=== PATIENT | male | born 1960 | race Caucasian/White ===

== ENCOUNTER 2019-06-15 07:27 | Observation (INO) ==
--- NOTE | 2019-05-15 11:55 | PAT Medication Instructions ---
Medication Instructions Date of Service May 15, 2019 Home Medications cartilage 40 mg-collagen II 10 mg-boron 5 mg-hyaluronate 3.3 mg tablet 1 tab PO QAM cholecalciferol (vitamin D3) 25 mcg (1,000 unit) capsule 1,000 units PO QAM naproxen sodium 220 mg capsule 220 mg PO QAM PRN ASK your surgeon for instructions naproxen sodium 220 mg capsule 220 mg PO QAM PRN STOP taking 2 weeks before surgery (or as soon as possible if surgery is within 2 weeks) cartilage 40 mg-collagen II 10 mg-boron 5 mg-hyaluronate 3.3 mg tablet 1 tab PO QAM DO NOT take the morning of surgery cholecalciferol (vitamin D3) 25 mcg (1,000 unit) capsule 1,000 units PO QAM Other Notes If you have any questions please call us at [phone] or [phone] or [phone] or [phone]
--- NOTE | 2019-05-16 10:46 | Anesthesiology Consultation ---
Date of Service May 16, 2019 Assessment & Plan (1) Encounter for pre-operative examination: Chart Review Chart Review: Acceptable Risk for Surgery and Patient seen in Pre Admission Testing Teaching & Discussion Pre-Anesthesia Teaching/Discussion Notes: Instructed NPO after midnight before surgery,except medications with 15 cc of water. Medication instructions provided according to the PAT guidelines. History Surgery Operation Date: 06/15/19 12:10 Proposed Procedures p Left Unicompartment Knee Arthroplasty - Marcos Encarnacion, Height/Weight Height: 5 ft 10 in Weight: 94.6 kg Allergies Allergy/AdvReac Type Severity Reaction Status Date / Time No Known Allergies Allergy Verified 05/16/19 09:16 Medications Home Medications Medication Instructions Recorded Confirmed Last Taken cartilage 40 mg-collagen II 10 1 tab PO QAM 02/19/19 05/16/19 Unknown mg-boron 5 mg-hyaluronate 3.3 mg tablet cholecalciferol (vitamin D3) 25 1,000 units PO QAM 02/19/19 05/16/19 Unknown mcg (1,000 unit) capsule naproxen sodium 220 mg capsule 220 mg PO QAM PRN 02/19/19 05/16/19 Unknown Past Medical History Medical History Arthritis Exercise / Class Metabolic Activity II 4-5 Yardwork/Stairs/Walk up hill Past Surgical History Surgical History History of mandibular surgery under-bite repair Hx of colonoscopy Past Anesthesia History No Hx of Anesthesia Complications and No Family Hx of Anesthesia Complications History of PONV No Hx of PONV and No Hx of Motion Sickness Social History Smoking Status: Never smoker Do You Dip or Chew Tobacco: No Hx Alcohol Use: Yes alcohol intake frequency: a few times a week Hx Substance Use: No Review of Systems Patient denies chest pain, shortness of breath, dyspnea on exertion, cough, wheezing, palpitations. Physical Exam Vital Signs VITALS BP 162/94 (per patient, BP typically well controlled- will continue to personally/have PCP monitor) P 55 TEMP 98.0 SP02 95%RA RESP 18 PHYSICAL Full neck and c-spine range of motion. Full TMJ range of motion. TMD 3.5 finger breaths Mallampati Score 2 Dentition: several missing molars Lungs: clear throughout to auscultation Cardiac: regular rate and rhythm, no murmurs noted Spine: normal Carotid arteries: negative bruit Extremities: no edema Testing Laboratory Results 05/16/19 11:00 05/16/19 11:00 PT 9.8 Seconds (9.0-12.0) 05/16/19 11:00 INR 1.0 (0.9-1.1) 05/16/19 11:00 APTT 25.1 Seconds (21.0-31.0) 05/16/19 11:00 Blood Type O Positive 05/16/19 11:00 Antibody Screen NEGATIVE 05/16/19 11:00 Electrocardiogram Date: 05/16/19 Findings: + SB @ (49) Chest X-Ray Date: 05/16/19 The heart is the upper limits of normal in size. There is mild aortic tortuosity. There is no failure. There is no focal pulmonary consolidation. There are no pleural effusions. IMPRESSION: No active disease in the chest.
--- NOTE | 2019-05-16 11:20 | XRay Report ---
XR chest Pre-admission PA/Lat CLINICAL HISTORY: Preoperative chest COMPARISON STUDY: No previous studies for comparison. FINDINGS: The heart is the upper limits of normal in size. There is mild aortic tortuosity. There is no failure. There is no focal pulmonary consolidation. There are no pleural effusions.[ IMPRESSION: No active disease in the chest. ACT 112: Negative or not required by law. Electronically signed by: Mesfin Ruiz M.D. 05/16/2019 11:19 AM
[2019-05-16 12:00] LABS: Basophils # (auto) 0.01 K/uL (0-0.2); Basophils % (auto) 0.2 %; Eosinophils # (auto) 0.08 K/uL (0-0.5); Eosinophils % (auto) 1.6 %; Hematocrit (blood only) 44.3 % (42-52); Immature Granulocytes # (auto) 0.06 K/uL (0.00-0.02); Immature Granulocytes % (auto) 1.2 %; Lymphocytes # (auto) 1.17 K/uL (1.2-3.4); Lymphocytes % (auto) 23.7 %; Mean Corpuscular Hemoglobin 32.6 pg (25-34); Mean Corpuscular Hgb Conc 33.9 g/dL (32-36); Mean Corpuscular Volume 96.3 fL (80-100); Mean Platelet Volume 9.4 fL (7.4-10.4); Monocytes # (auto) 0.47 K/uL (0.11-0.59); Monocytes % (auto) 9.5 %; Neutrophils # (auto) 3.14 K/uL (1.4-6.5); Neutrophils % (auto) 63.8 %; Platelet Count 213 K/uL (130-400); RDW Coefficient of Variation 13.3 % (11.5-14.5); RDW Standard Deviation 46.6 fL (36.4-46.3); White Blood Count 4.93 K/uL (4.8-10.8)
[2019-05-16 12:07] LABS: BUN Creatinine Ratio 17.7 (10-20); Calcium 8.8 mg/dl (8.5-10.1); Creatinine Clr Calc Pharmacy 87.1 ml/min; Est GFR (African American) 87.8; Est GFR (Non-African American) 75.8; Potassium 4.3 mmol/L (3.5-5.1)
[2019-05-16 12:23] LABS: Partial Thromboplastin Ratio 0.9; Partial Thromboplastin Time 25.1 Seconds (21.0-31.0); Prothrombin Time 9.8 Seconds (9.0-12.0)
--- NOTE | 2019-05-16 12:49 | Electrocardiogram Report ---
Test Reason : Blood Pressure : / mmHG Vent. Rate : 049 BPM Atrial Rate : 049 BPM P-R Int : 162 ms QRS Dur : 082 ms QT Int : 430 ms P-R-T Axes : 072 058 057 degrees QTc Int : 388 ms Sinus bradycardia Otherwise normal ECG No previous ECGs available Confirmed by Kaiden Ortega ([id number]) on 05/16/2019 12:48:58 PM Referred By: Marcos Encarnacion Confirmed By:Kaiden Ortega
--- NOTE | 2019-06-15 06:46 | History & Physical Report ---
Date of Service June 15, 2019 Assessment & Plan (1) Osteoarthritis of right knee: We will proceed with a left unicompartmental knee arthroplasty. Postoperatively he will be placed on aspirin for DVT prophylaxis and kept overnight in the hospital for postoperative medical management. He plans [facility] upon discharge. Cam is a low risk for knee replacement surgery. Present on Admission?: Yes History of Present Illness Chief Complaint: Primary osteoarthritis of the left knee Primary Care Provider: Tobin Sawyer MD Cam is a pleasant 58-year-old male who is been dealing with chronic increasing left knee pain. X-rays and clinical examination have been diagnostic mostly for medial compartmental arthritis of the right knee. He is very active. He wants a more natural feeling knee. After discussions in the office, he has elected proceed with a left unicompartmental knee arthroplasty. Allergies Allergy/AdvReac Type Severity Reaction Status Date / Time No Known Allergies Allergy Verified 05/16/19 09:16 Home Medications Home Medications Medication Instructions Recorded Confirmed Type cartilage 40 mg-collagen II 10 1 tab PO QAM 02/19/19 05/16/19 History mg-boron 5 mg-hyaluronate 3.3 mg tablet cholecalciferol (vitamin D3) 25 1,000 units PO QAM 02/19/19 05/16/19 History mcg (1,000 unit) capsule naproxen sodium 220 mg capsule 220 mg PO QAM PRN 02/19/19 05/16/19 History Past Med/Surg History Medical History Arthritis Surgical History History of mandibular surgery under-bite repair Hx of colonoscopy Social History Preferred Language: Malian Communication Ability: Effective Beliefs That Will Affect Care: None Current Living Situation: Significant Other Feels Safe at Home: Yes Safety Concerns: Feels Safe At This Time Smoking Status: Never smoker Do You Dip or Chew Tobacco: No ; Second Hand Exposure: No ; Hx Alcohol Use: Yes Hx Substance Use: No Review of Systems Review of Systems: All systems reviewed & are unremarkable except as noted in HPI & below Physical Exam Constitutional: WD/WN, vitals as above Eyes: PERRL, conjunctivae normal, anicteric sclerae ENMT: external ear and nose normal, oropharynx normal Neck: trachea midline, no thyromegaly Respiratory: normal respiratory effort Cardiovascular: RRR, no murmur, no edema Gastrointestinal (Abdomen): normal bowel sounds, soft, nontender, no hepatosplenomegaly Musculoskeletal: On physical examination of the left knee there is a trace effusion. There is near full range of motion and no evidence of instability. There is significant tenderness palpation along the medial and lateral joint lines and over the distal femoral condyles. Psychiatric: A+Ox3, euthymic affect Results & Data Diagnostic Findings Radiographs of the left knee demonstrate advanced osteoarthritis with joint space narrowing osteophyte formation and [id number] articulation. PG Care Time/CCT Total # of Minutes Spent Total Time Spent with Patient: Total time spent is greater than 50% in coordination of care (as documented) at patient's floor/unit and/or counseling patient: Coding Level of Care Code 29501 Initial Inpt Care Lvl 3 Diagnoses Osteoarthritis of right knee M17.11
[~2019-06-15 07:27] MED LIST: ACETAMINOPHEN 500 MG TAB PO SCH; BUPIVACAINE 0.5 % 5 MG/1 ML PF 10ML VIAL ONE; CEFAZOLIN 2000MG 2,000 MG/15 ML SYR IV SCH; FAMOTIDINE 20 MG TAB PO SCH; GABAPENTIN 600 MG DOSE PO SCH; LR 500ML BOLUS, THEN 15ML/HR IV SCH; LR 60ML/HR IV SCH; ROPIVACAINE 0.5% 5 MG/ML 30 ML VIAL ONE; ROPIVACAINE 0.5% HCL/PF 150 MG, BUPIVACAINE 0.5% MPF 30 ML, EPINEPHrine 30MG/30ML (OR U... INSTIL SCH; TRANEXAMIC ACID 1,000 MG **IV Intra-op IV SCH; TRANEXAMIC ACID 1,000 MG **IV Pre-op IV SCH; dexAMETHasone 4 MG TAB PO SCH
[2019-06-15] MEDS ORDERED: PROPOFOL IV EMULSION 10 MG/ML 20 ML VIAL IV ONE ×3 (07:44→10:49)
[2019-06-15] MEDS ORDERED: MIDAZOLAM HCL 1 MG/ML 2ML VIAL ONE (07:44)
[2019-06-15] MEDS ORDERED: fentaNYL citrate 100 MCG/2 ML VIAL ONE ×2 (07:44→10:00)
[2019-06-15] MEDS ORDERED: ORTHO JOINT ANESTHETIC ONE (08:46)
[2019-06-15] MEDS ORDERED: KETOROLAC 30 MG/ML VIAL IV PRN (09:49)
[2019-06-15] MEDS ORDERED: ONDANSETRON INJ 2 MG/ML 2 ML VIAL IV PRN ×2 (09:49→13:30)
[2019-06-15] MEDS ORDERED: ATROPINE SULFATE 0.1 MG/ML 10ML SYR IV PRN (09:49)
[2019-06-15] MEDS ORDERED: ePHEDrine sulfate 50 MG/ML AMP IV PRN (09:49)
[2019-06-15] MEDS ORDERED: HYDROmorphone INJ 1 MG/ML SYRINGE IV PRN (09:49)
[2019-06-15] MEDS ORDERED: DEXAMETHASONE SOD INJ 4 MG/ML VIAL ONE (09:56)
[2019-06-15] MEDS ORDERED: ONDANSETRON INJ 2 MG/ML 2 ML VIAL ONE (09:56)
--- NOTE | 2019-06-15 11:19 | Operative Report ---
PG Post Operative Report Pre & Post Diagnosis Operation Date: 06/15/19 10:00 Pre-Op Diagnosis: Left Knee Degenerative Joint Disease Post-Op Diagnosis: Left Knee Degenerative Joint Disease I identified the patient and participated in the time-out.: Yes Procedure Operation Date: 06/15/19 10:00 Actual Procedures p Left Unicompartment Knee Arthroplasty(Left) - Marcos Encarnacion DO Surgeon Marcos Encarnacion DO Rn Clinical Appeals Marcos Canales PAC Estimated Blood Loss 10 Findings Consistent with Post-Op Diagnosis Specimens Left femoral and tibial bone Complications none Disposition Disposition: Recovery Room Indications Cam is a very pleasant 58-year-old male who is been dealing with chronic increasing left knee pain. X-rays and clinical examination have been diagnostic for primary osteoarthritis of the left knee. Most of the arthritis in his symptoms were located in the medial compartment. After extensive discussions, he elected to proceed with a left unicompartmental knee arthroplasty. Description of Procedure Implants used: I used a [employer] [place] unicompartmental knee arthroplasty system with a size medium femur, C tibia, and a size 4 mobile polyethylene bearing. All components were cemented in place with Palacos G cement. Cam arrived [facility] for the above procedure. He was seen in the preoperative holding area and the operative extremity was identified and signed. He was given a preoperative antibiotic, TXA, a spinal anesthetic and an adductor nerve block. He was taken back to the operating room and laid on the table in the supine position. He was given basic sedation. The operative knee was then prepped and draped in sterile fashion. A timeout was done, and the patient and the operative extremity was properly identified. A midline incision was made from the superior pole of the patella down to the tibial tubercle. Dissection was taken down to the extensor mechanism and a subvastus arthrotomy was used. The medial retinaculum was released and a small portion of the fat pad was excised. The knee was then placed in a leg singh and the intra-articular portion of the knee was exposed. The medial meniscus was removed. The ACL was intact and the lateral compartment was inspected and there were no signs of any chondral damage. Several sizing spoons were used to measure the distal femur and it measured to be a size medium.The tibial saw guide was then placed externally over the shaft of the tibia. A 4 mm G clamp was used to clamp the spoon with the external tibial saw guide. 2 pins were placed. A reciprocating saw was then used to resect the tibia just medial to the apex of the medial tibial spine. An oscillating saw was then used to resect the tibial plateau. The tibial bone was then removed. The tibia measured to be a size C. The trochlea was then exposed. A 4 mm drill was sent down the center of the femoral canal followed by a long intramedullary roc. A line was then marked in the center of the distal medial femoral condyle. A femoral drill guide was then placed and the IM link was used to connect the intramedullary roc to the femoral drill guide. A 4 mm drill was used in the upper pole of the drill guide and a 6 mm drill was used in the lower pole of the drill guide. The drill guide was then removed. A posterior resection guide was then placed in the posterior femur was resected. A 0 spigot was then impacted in the 6 mm drill hole. The distal femur was then milled and osteophytes were removed. Femoral and tibial trials were then placed. A size 4 feeler gauge was used to measure the flexion gap in 100 of flexion. A size 1 feeler gauge was used to measure the extension gap in full extension. Trials were then removed and a size 3 spigot was then impacted in the 6 mm hole. The distal femur was once again milled. The anti- impingement guide was then impacted into place and an anterior mill was used to remove anterior bone and create clearance for the front of the bearing. The tibial template was then placed and the keel cut saw was used to resect for the keeled component. Trial components were then placed along with a size 4 mobile- bearing. The knee was brought through a full range of motion and felt to be stable. All trial components were then removed. Surrounding soft tissues were then injected with 50 cc of a pain control cocktail. Drill holes were placed in the distal femur to help with cement integration. The femoral and tibial components were then cemented in place with Palacos G cement. The size 4 mobile-bearing was then snapped into place. The knee was brought through a full range of motion and felt to be stable. The joint was then irrigated with normal saline solution. The tourniquet was deflated and hemostasis was obtained. The extensor mechanism was then closed with #1 Vicryl suture. Skin was closed with 2-0 Vicryl, 3-0V lock suture, and amanda. A compressive dressing was then placed. He was then transferred to a hospital bed and taken to the postanesthesia care unit in stable condition. He tolerated the procedure well. Marcos Canales PA-C, was present for the entire procedure. He was critical for patient positioning, prepping, draping, retraction exposure, wound closure and application of sterile dressing. I attest to the content of the Intraoperative Record and any orders documented therein. Any exceptions are noted below.
--- NOTE | 2019-06-15 11:51 | XRay Report ---
XR knee LT 1 or 2V routine HISTORY: 58 years-old Male Surgical Post Op chronic degenerative change of the left knee COMPARISON: Knee radiographs 11/08/2018 TECHNIQUE: 2 views of the left knee FINDINGS: Medial compartment hemiarthroplasty changes. Satisfactory alignment without acute fracture or retaine d foreign body. Moderate patellofemoral and lateral compartment osteoarthritis. Anterior midline skin amanda are noted along with expected postoperative swelling and deep tissue air with surgical drain age catheter. IMPRESSION: Medial compartment hemiarthroplasty with expected postoperative findings. ACT 112: Negative or not required by law. The above report was generated using voice recognition software. It may contain grammatical, syntax o r spelling errors. Electronically signed by: Luciano Bazan M.D. 06/15/2019 11:50 AM
--- NOTE | 2019-06-15 12:17 | Anesthesiology Progress Note ---
Date of Service June 15, 2019 Anesthesia Post Procedure Vital Signs Vital Signs: Temp Pulse Pulse Resp BP Pulse Ox 06/15/19 11:55 36.9 C 60 16 143/85 H 94 06/15/19 11:45 61 16 138/81 98 06/15/19 11:39 36.9 C 66 15 126/81 97 06/15/19 07:47 36.7 C 58 L 20 150/88 H 97 Transfer of Care Handoff Completed per policy Notes Mental Status: alert / awake / arousable Patient Amnestic to Procedure: Yes Nausea / Vomiting: adequately controlled Pain: adequately controlled Airway Patency, RR, SpO2: stable & adequate BP & HR: stable & adequate Hydration State: stable & adequate Anesthetic Complications: no major complications apparent
[2019-06-15] MEDS ORDERED: HYDROmorphone INJ 0.5 MG/0.5 ML SYR IV PRN (13:30)
[2019-06-15] MEDS ORDERED: bisacodyL 10 MG SUPP PR PRN (13:30)
[2019-06-15] MEDS ORDERED: SODIUM CHLORIDE 0.9% 1000ML 1,000 ML IV SCH (13:30)
[2019-06-15] MEDS ORDERED: METOCLOPRAMIDE HCL INJ 5 MG/ML 2 ML VIAL IV PRN (13:30)
[2019-06-15] MEDS ORDERED: MAGNESIUM HYDROXIDE SUSP 30 ML UDC PO PRN (13:30)
[2019-06-15] MEDS ORDERED: NALOXONE HCL 0.4 MG/1 ML VIAL/CARP IV PRN (13:30)
[2019-06-15] MEDS ORDERED: OXYCODONE HCL IR 5 MG TAB (IMMEDIATE RELEASE) PO PRN (13:30)
[2019-06-15] MEDS: ACETAMINOPHEN 500 MG TAB PO SCH ×2 (13:51→22:25)
[2019-06-15] MEDS: KETOROLAC 30 MG/ML VIAL IV SCH ×2 (13:51→20:07)
[2019-06-15] MEDS: CEFAZOLIN 2000MG 2,000 MG/15 ML SYR IV SCH (17:30)
[2019-06-15] MEDS: ASPIRIN 81 MG ECTAB PO SCH (20:02)
[2019-06-15] MEDS: DOCUSATE SODIUM 100 MG CAP PO SCH (20:02)
[2019-06-15] MEDS ORDERED: SENNA 8.6 MG TAB PO SCH (21:00)
[2019-06-16] MEDS: CEFAZOLIN 2000MG 2,000 MG/15 ML SYR IV SCH (02:09)
[2019-06-16] MEDS: KETOROLAC 30 MG/ML VIAL IV SCH ×2 (02:09→08:49)
[2019-06-16 06:01] LABS: Hematocrit (blood only) 40.1 % (42-52); Hemoglobin 13.8 g/dL (14.0-18.0); Mean Corpuscular Hemoglobin 32.4 pg (25-34); Mean Corpuscular Hgb Conc 34.4 g/dL (32-36); Mean Corpuscular Volume 94.1 fL (80-100); Mean Platelet Volume 9.8 fL (7.4-10.4); Platelet Count 234 K/uL (130-400); RDW Coefficient of Variation 12.8 % (11.5-14.5); RDW Standard Deviation 43.6 fL (36.4-46.3); Red Blood Count 4.26 M/uL (4.7-6.1)
[2019-06-16 06:29] LABS: BUN Creatinine Ratio 13.6 (10-20); Calcium 8.4 mg/dl (8.5-10.1); Est GFR (African American) 79.7; Est GFR (Non-African American) 68.8; Potassium 4.1 mmol/L (3.5-5.1)
[2019-06-16] MEDS: ACETAMINOPHEN 500 MG TAB PO SCH (06:41)
--- NOTE | 2019-06-16 07:41 | Orthopedic Progress Note ---
Date of Service June 16, 2019 Assessment & Plan (1) History of prosthetic unicompartmental arthroplasty of left knee: Overall he is doing very well. Is not having much pain in the left knee. He will be seen by physical therapy this morning for ambulation and range of motion exercises. He is on aspirin for DVT prophylaxis. He can be discharged home later today. He will follow-up with orthopedics in 2 weeks. Present on Admission?: Yes Bhavana Levy was seen and examined at bedside this morning. Overall he is doing very well. Is not having much pain in the left knee. He was up and ambulating aroun d the [employer] station yesterday. He has no complaints. Physical Exam Musculoskeletal: On physical examination of the left knee, the dressing is clean and dry. His leg is out to full extension. He has active dorsiflexion and plantarflexion of his left ankle. Results & Data ([facility]) Vital Signs (Past 12 Hours) Vital Signs Temp Pulse Resp BP Pulse Ox 06/16/19 03:00 36.7 C 55 L 16 146/85 H 97 06/15/19 23:59 37.0 C 70 18 148/78 H 96 06/15/19 19:48 36.8 C 56 L 18 135/80 95 Laboratory Results H & H 05/16/19 06/16/19 Range/Units 11:00 05:04 Hgb 15.0 13.8 L (14.0-18.0) g/dL Hct 44.3 40.1 L (42-52) % Coagulation 05/16/19 Range/Units 11:00 INR 1.0 (0.9-1.1) Diagnostic Findings Postoperative x-rays of the left knee show the prosthesis to be in anatomic alignment without any evidence of fracture, dislocation, or loosening. PG Care Time/CCT Total # of Minutes Spent Total Time Spent with Patient: Total time spent is greater than 50% in coordination of care (as documented) at patient's floor/unit and/or counseling patient: Coding Level of Care Code None Diagnoses History of prosthetic unicompartmental arthroplasty of left knee Z96.652
--- NOTE | 2019-06-16 07:42 | Discharge Summary ---
Date of Service June 16, 2019 Admission HPI Per Admitting Provider Cam is a pleasant 58-year-old male who is been dealing with chronic increasing left knee pain. X-rays and clinical examination have been diagnostic mostly for medial compartmental arthritis of the right knee. He is very active. He wants a more natural feeling knee. After discussions in the office, he has elected proceed with a left unicompartmental knee arthroplasty. Principal Diagnosis Left unicompartmental knee arthroplasty Discharge Data Allergies Allergy/AdvReac Type Severity Reaction Status Date / Time No Known Allergies Allergy Verified 06/15/19 07:46 Consultations 06/15/19 12:33 Consult Case Management - Discharge Planning Routine Procedures Performed Operation Date: 06/15/19 10:00 Actual Procedures p Left Unicompartment Knee Arthroplasty(Left) - Marcos Encarnacion DO Ordered Studies 06/15/19 05:00 US - OR guided needle placemen Routine Hospital Course (1) History of prosthetic unicompartmental arthroplasty of left knee: On June 15, 2019 Cam arrived at [facility] and underwent a left partial knee replacement without complication. He had a spinal anesthetic. Postoperatively he was started on aspirin for DVT prophylaxis and transferred to general orthopedic floors. His hospital course was uneventful. On postop day #1 his H&H was stable and his pain was well controlled. He was able to participate well with physical therapy doing ambulation and range of motion exercises. He was then discharged home. He will follow-up with orthopedics in 2 weeks. Total Time Total Time Spent Total Time Spent (In Minutes): 20 Discharge Plan Discharge Items Patient Disposition: Home - Home Health Services Reason For Visit: Left Knee Degenerative Joint Disease Discharge Diagnosis: Left partial knee replacement Activity: As commented below Non-emergency contact: Surgeon Call non-emergency contact if: your wound has increased redness and your wound has increased drainage Follow-up/Referrals: Tobin Sawyer MD [Primary Care Provider] - Diet: Regular Addtl Attending Provider Instructions: Activity and Therapy Recommendations: * If you are using [facility] then therapy will be provided at your home until they feel you have accomplished all of your goals. * If you are using [facility] then Physical Therapy will be provided until they feel you are ready to start Outpatient Physical Therapy. * If you are not using home therapy then Outpatient Physical Therapy should start about 3-5 days from your day of surgery. Therapy will last about 6-10 weeks * It is important not to put a pillow under your knee when you are relaxing or sleeping. It is just as important to make sure you are getting your knee perfectly straight as it is to regain your knee bend. * You were shown a series of exercises in the hospital. Do these exercises three times each day including the exercises you were shown in physical therapy. * Get up and walk several times each day. For the first four weeks, try not to stand or walk for more than one hour at a time. If you do stand or walk for more than one hour, you will not hurt anything, but your leg will likely swell. * As you feel comfortable, you may change from the walker or crutches to a cane and then to independent walking. Medications: * Narcotic You will likely be sent home from the hospital with a prescription for the narcotic pain medication that worked best throughout your stay. * Aspirin Most patients will be required to take Aspirin 81mg twice a day for 6 weeks after surgery. This is obtained [id number] and a prescription is not necessary. * Other medications may be prescribed for specific circumstances. If you have any questions, please call the office at . * Resume previous home medications unless otherwise instructed TEDs/Elastic Stockings: The white elastic stockings help limit swelling and prevent blood clots from forming in your legs.~ The more you wear them, the more they work. Wear them for six weeks. Dressing Care: If the incision is not draining then you may leave the amanda open to air. If there is a little bit of drainage or if the amanda are getting stuck on your clothing then cover the incision with a dry dressing. The amanda will be removed at your 2 week follow-up appointment. Showering: You may shower 5 days from the day of surgery. Let the soapy shower water run over the amanda and pat them dry. Do not scrub or soak the incision. Things To Watch For: * Drainage from the incision site that occurs more than one week after your surgery. * Increased redness at the incision site. * Fever above 102 degrees Fahrenheit. * Unusual chest pain or shortness of breath. * Call [facility] at with any of the above problems Follow-Up Visit: Follow-up with Dr. Encarnacion 2-3 weeks after your day of surgery. An appointment was probably scheduled when you signed-up for surgery in the office. If you have any questions call Office Instructions: More detailed instructions as well as Frequently Asked Questions were provided i n a folder by our office when you signed-up for surgery. Please review these instructions when you get home. If you have any further questions or concerns, please feel free to call the office at [phone] Pending Studies at Discharge: No Stand-Alone Forms: [facility] C[facility] Medications and DC Order Prescriptions: New oxycodone 5 mg Tablet 5 mg PO Q4H PRN (Reason: pain) Qty: 30 RF: 0 aspirin 81 mg Tablet,Delayed Release (Dr/Ec) 81 mg PO BID 42 Days Qty: 0 RF: 0 Continued naproxen sodium [Aleve] 220 mg capsule 220 mg PO QAM PRN (Reason: Pain) RF: 0 cholecalciferol (vitamin D3) 1,000 unit capsule 1,000 units PO QAM RF: 0 Joint Health 40-10-5-3.3 mg tablet 1 tab PO QAM RF: 0 Discharge Orders: Discharge Order (Routine); Ordered 06/16/19 Ordered By: Marcos Encarnacion Admission Data Admit Date/Time: 06/15/19 11:39 Attending Provider: Marcos Encarnacion Admit Provider: Marcos Encarnacion Primary Care Provider: Tobin Sawyer Coding Level of Care Code D/C Day Management <30 mins Diagnoses History of prosthetic unicompartmental arthroplasty of left knee Z96.652
[2019-06-16] MEDS ORDERED: dexAMETHasone 4 MG TAB PO SCH (08:00)
[2019-06-16] MEDS: ASPIRIN 81 MG ECTAB PO SCH (08:49)
[2019-06-16] MEDS: DOCUSATE SODIUM 100 MG CAP PO SCH (08:50)
[2019-06-16] MEDS ORDERED: MULTIVITAMIN TAB PO SCH (09:00)
== END 2019-06-16 10:58 | disposition home health service (06) ==
LOC: 3E 07:27 → ASU 07:27
DX: M17.11 Unilateral primary osteoarthritis, right knee

== ENCOUNTER 2020-01-25 06:31 | Observation (INO) ==
--- NOTE | 2019-12-26 15:51 | PAT Medication Instructions ---
Medication Instructions Date of Service December 26, 2019 Home Medications Medication Instructions Recorded amoxicillin 500 mg tablet 2,000 mg PO ONCE PRN #4 tab 10/11/19 cartilage 40 mg-collagen II 10 mg-boron 5 mg-hyaluronate 3.3 mg tablet 1 tab PO QAM cholecalciferol (vitamin D3) 25 mcg (1,000 unit) capsule 1,000 units PO QAM naproxen sodium 220 mg capsule 220 mg PO QAM PRN amoxicillin 500 mg tablet 2,000 mg PO ONCE PRN Continue as directed amoxicillin 500 mg tablet 2,000 mg PO ONCE PRN ASK your surgeon for instructions naproxen sodium 220 mg capsule 220 mg PO QAM PRN STOP taking 2 weeks before surgery If surgery is within 2 weeks, stop taking as soon as possible. cartilage 40 mg-collagen II 10 mg-boron 5 mg-hyaluronate 3.3 mg tablet 1 tab PO QAM DO NOT take the morning of surgery cholecalciferol (vitamin D3) 25 mcg (1,000 unit) capsule 1,000 units PO QAM Other Notes If you have any questions please call us at [phone] or [phone] or [phone] or [phone]
--- NOTE | 2019-12-27 10:02 | Anesthesiology Consultation ---
Date of Service December 27, 2019 Assessment & Plan (1) Encounter for pre-operative examination: COVID Status: As of 12/26 assessment, patient denies travel to endemic area, known exposure/sick contacts, or symptoms of COVID19. Patient instructed that they and their household members must follow strict social distancing guidelines, wear a mask in public and avoid travel for 14 days prior to surgery. Preoperative COVID19 testing to be completed prior to surgery per surgeon's a rrangements. Patient made aware to self-isolate as much as possible between COVID testing and surgery. S/P L TKA 06/15/[address] [facility] -- SAB + AC block, pt aaron well. Chart Review Chart Review: Acceptable Risk for Surgery and Patient seen in Pre Admission Testing Teaching & Discussion Instructed NPO after midnight before surgery, except medications with 15 cc of water. Medication instructions provided according to the PAT guidelines. History Surgery Operation Date: 01/25/20 07:00 Proposed Procedures p Right Uni Compartment Knee Arthroplasty Versus - Marcos Encarnacion DO s Total Knee Arthroplasty - Marcos Encarnacion DO Height/Weight Height: 5 ft 10 in Weight: 96 kg Allergies Allergy/AdvReac Type Severity Reaction Status Date / Time No Known Allergies Allergy Verified 12/24/19 12:26 Medications Home Medications Medication Instructions Recorded Confirmed Last Taken cartilage 40 mg-collagen II 10 1 tab PO QAM 02/19/19 12/24/19 05/31/19 07:00 mg-boron 5 mg-hyaluronate 3.3 mg tablet cholecalciferol (vitamin D3) 25 1,000 units PO QAM 02/19/19 12/24/19 06/08/19 07:00 mcg (1,000 unit) capsule naproxen sodium 220 mg capsule 220 mg PO QAM PRN 02/19/19 12/24/19 06/01/19 07:00 amoxicillin 500 mg tablet 2,000 mg PO ONCE PRN #4 tab 10/11/19 12/24/19 Unknown Past Medical History Medical History Arthritis Exercise / Class Metabolic Activity II 4-5 Yardwork/Stairs/Walk up hill Past Family History Family History Sister PONV (postoperative nausea and vomiting) Past Surgical History Surgical History History of mandibular surgery under-bite repair History of prosthetic unicompartmental arthroplasty of left knee (~06/2019) 06/15/2019 [facility] Hx of colonoscopy Past Anesthesia History No Hx of Anesthesia Complications and No Family Hx of Anesthesia Complications History of PONV No Hx of PONV and No Hx of Motion Sickness Social History Smoking Status: Never smoker Do You Dip or Chew Tobacco: No Hx Alcohol Use: Yes alcohol intake frequency: a few times a week Hx Substance Use: No substance use type: does not use Review of Systems Pt denies any recent chest pain, shortness of breath, cough, fever, URI, or uncontrolled acid reflux. +Occ palpitations Physical Exam Vital Signs BP: 148/93 (pt reports taking his BP at home regularly and usually 130s/80s) P: 52bpm SPO2: 96% RA T: 98.2 F R: 16 ENMT Mouth: no dental restorations, no chipped teeth and no loose teeth Thyromental Distance: > or= 3.5 Finger Breadths Mallampati Class: I Neck normal visual inspection; neck extension not limited Respiratory normal respiratory effort Auscultation: lungs clear to auscultation bilaterally Cardiovascular Rate/Rhythm: regular rate and regular rhythm Heart Sounds: no murmur Extremities: no edema Testing Laboratory Results 12/27/19 10:17 12/27/19 10:17 PT 10.4 Seconds (9.0-12.0) 12/27/19 10:17 INR 1.0 (0.9-1.1) 12/27/19 10:17 APTT 27.6 Seconds (21.0-31.0) 12/27/19 10:17 Blood Type O Positive 12/27/19 10:17 Antibody Screen NEGATIVE 12/27/19 10:17 Electrocardiogram Date: 05/16/19 Findings: + SB @ (49bpm) Chest X-Ray Date: 05/16/19 Findings: + NAD
[2019-12-27 11:46] LABS: Basophils # (auto) 0.01 K/uL (0-0.2); Basophils % (auto) 0.2 %; Eosinophils # (auto) 0.09 K/uL (0-0.5); Eosinophils % (auto) 1.9 %; Hematocrit (blood only) 43.9 % (42-52); Hemoglobin 15.2 g/dL (14.0-18.0); Immature Granulocytes # (auto) 0.04 K/uL (0.00-0.02); Immature Granulocytes % (auto) 0.9 %; Lymphocytes # (auto) 1.11 K/uL (1.2-3.4); Lymphocytes % (auto) 23.7 %; Mean Corpuscular Hemoglobin 32.9 pg (25-34); Mean Corpuscular Hgb Conc 34.6 g/dL (32-36); Mean Platelet Volume 9.7 fL (7.4-10.4); Monocytes # (auto) 0.41 K/uL (0.11-0.59); Monocytes % (auto) 8.7 %; Neutrophils # (auto) 3.03 K/uL (1.4-6.5); Neutrophils % (auto) 64.6 %; Platelet Count 216 K/uL (130-400); RDW Coefficient of Variation 13.7 % (11.5-14.5); RDW Standard Deviation 47.4 fL (36.4-46.3); Red Blood Count 4.62 M/uL (4.7-6.1); White Blood Count 4.69 K/uL (4.8-10.8)
[2019-12-27 11:58] LABS: Partial Thromboplastin Time 27.6 Seconds (21.0-31.0); Prothrombin Time 10.4 Seconds (9.0-12.0)
[2019-12-27 11:59] LABS: BUN Creatinine Ratio 14.7 (10-20); Calcium 8.8 mg/dl (8.5-10.1); Creatinine Clr Calc Pharmacy 81.4 ml/min; Est GFR (African American) 80.9; Est GFR (Non-African American) 69.8; Potassium 4.4 mmol/L (3.5-5.1)
--- NOTE | 2020-01-24 15:51 | History & Physical Report ---
Date of Service January 24, 2020 Assessment & Plan (1) Osteoarthritis of right knee: We will proceed with a right unicompartmental knee arthroplasty. Postoperatively he will be given some oral pain medications and likely discharged to home the same day. He will be on aspirin 81 mg twice a day for DVT prophylaxis. He plans to use [place] physical therapy upon discharge. Present on Admission?: Yes History of Present Illness Chief Complaint: Primary osteoarthritis of the right knee Primary Care Provider: Tobin Sawyer MD Cam is a pleasant 59-year-old male who I did a left partial knee replacement on in June 2019. He did very well with that. Unfortunately he has been dealing with right knee pain. X-rays clinical examination have been diagnostic for advanced medial compartment arthritis of the right knee. After failing conservative treatment, he has elected proceed with a right unicompartmental knee arthroplasty. Allergies Allergy/AdvReac Type Severity Reaction Status Date / Time No Known Allergies Allergy Verified 12/24/19 12:26 Home Medications Home Medications Medication Instructions Recorded Confirmed Type cartilage 40 mg-collagen II 10 1 tab PO QAM 02/19/19 12/24/19 History mg-boron 5 mg-hyaluronate 3.3 mg tablet cholecalciferol (vitamin D3) 25 1,000 units PO QAM 02/19/19 12/24/19 History mcg (1,000 unit) capsule naproxen sodium 220 mg capsule 220 mg PO QAM PRN 02/19/19 12/24/19 History amoxicillin 500 mg tablet 2,000 mg PO ONCE PRN #4 tab 10/11/19 12/24/19 Rx Past Med/Surg History Medical History Arthritis Surgical History History of mandibular surgery under-bite repair History of prosthetic unicompartmental arthroplasty of left knee (~06/2019) 06/15/2019 [facility] Hx of colonoscopy Family History Sister PONV (postoperative nausea and vomiting) Social History Smoking Status: Never smoker Second Hand Exposure: No; Do You Dip or Chew Tobacco: No; Hx Alcohol Use: Yes Hx Substance Use: No Preferred Language: Polish Communication Ability: Effective 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: No Beliefs That Will Affect Care: None marital status: Current Living Situation: Significant Other Feels Safe at Home: Yes Safety Concerns: Feels Safe At This Time Assistive Devices: Glasses Review of Systems Review of Systems: All systems reviewed & are unremarkable except as noted in HPI & below Physical Exam Constitutional: WD/WN, vitals as above Eyes: PERRL, conjunctivae normal, anicteric sclerae ENMT: external ear and nose normal, oropharynx normal Neck: trachea midline, no thyromegaly Respiratory: normal respiratory effort Cardiovascular: RRR, no murmur, no edema Gastrointestinal (Abdomen): normal bowel sounds, soft, nontender, no hepatosplenomegaly Musculoskeletal: On physical examination of the right knee there is a trace effusion. There is near full range of motion and no evidence of instability. There is significant tenderness palpation along the medial and lateral joint lines and over the distal femoral condyles. Psychiatric: A+Ox3, euthymic affect Results & Data Results & Data ([facility]) Diagnostic Findings Radiographs of the right knee demonstrate advanced osteoarthritis with joint space narrowing osteophyte formation and [id number] articulation. PG Care Time/CCT Total # of Minutes Spent Total Time Spent with Patient: Total time spent is greater than 50% in coordination of care (as documented) at patient's floor/unit and/or counseling patient: Coding Level of Care Code None Diagnoses Osteoarthritis of right knee M17.11
[~2020-01-25 06:31] MED LIST changes: -BUPIVACAINE 0.5 % 5 MG/1 ML PF 10ML VIAL ONE; -CEFAZOLIN 2000MG 2,000 MG/15 ML SYR IV SCH; -ROPIVACAINE 0.5% 5 MG/ML 30 ML VIAL ONE; +ceFAZolin 2000MG 2,000 MG/15 ML SYR IV SCH
[2020-01-25] MEDS ORDERED: BUPIVACAINE 0.5 % 5 MG/1 ML PF 10ML VIAL ONE (06:32)
[2020-01-25] MEDS ORDERED: BUPIVACAINE/EPINEPHRINE 0.25% 1:200,000 30 ML VIAL ONE (06:32)
[2020-01-25] MEDS ORDERED: fentaNYL citrate 100 MCG/2 ML VIAL ONE ×3 (06:42→09:37)
[2020-01-25] MEDS ORDERED: MIDAZOLAM HCL 1 MG/ML 2ML VIAL ONE (06:43)
[2020-01-25] MEDS ORDERED: ONDANSETRON INJ 2 MG/ML 2 ML VIAL ONE (06:47)
[2020-01-25] MEDS ORDERED: LIDOCAINE HCL 2% 2 ML VIAL/AMP(20MG/ML) INFIL ONE (06:47)
[2020-01-25] MEDS ORDERED: PROPOFOL IV EMULSION 10 MG/ML 20 ML VIAL IV ONE (06:47)
--- NOTE | 2020-01-25 06:58 | History & Physical Bridge Note ---
Date of Service January 25, 2020 History & Physical Bridge Note I have examined the patient, reviewed the History & Physical and in the interval since the performance of the History & Physical I have noted the following changes of clinical significance: no changes noted
[2020-01-25] MEDS ORDERED: KETAMINE HCL INJ 50 MG/ML 10 ML VIAL ONE (07:06)
[2020-01-25] MEDS ORDERED: ORTHO JOINT ANESTHETIC ONE (07:22)
[2020-01-25] MEDS ORDERED: fentaNYL citrate 100 MCG/2 ML VIAL IV PRN (07:59)
[2020-01-25] MEDS ORDERED: ePHEDrine sulfate 50 MG/ML AMP IV PRN (07:59)
[2020-01-25] MEDS ORDERED: ATROPINE SULFATE 0.1 MG/ML 10ML SYR IV PRN (07:59)
[2020-01-25] MEDS ORDERED: HYDROmorphone INJ 2 MG/ML SYR/VIAL IV PRN (07:59)
[2020-01-25] MEDS ORDERED: ONDANSETRON INJ 2 MG/ML 2 ML VIAL IV PRN ×2 (07:59→12:53)
[2020-01-25] MEDS ORDERED: PROMETHAZINE HCL 12.5 MG in SODIUM CHLORIDE 0.9% 50 ML IV PRN (07:59)
[2020-01-25] MEDS ORDERED: DEXAMETHASONE SOD INJ 4 MG/ML VIAL ONE (08:45)
[2020-01-25] MEDS ORDERED: HYDROmorphone INJ 2 MG/ML SYR/VIAL ONE (08:53)
[2020-01-25] MEDS ORDERED: GLYCOPYRROLATE 0.2 MG/ML VIAL ONE (09:20)
--- NOTE | 2020-01-25 09:52 | Operative Report ---
PG Post Operative Report Pre & Post Diagnosis Operation Date: 01/25/20 08:30 Pre-Op Diagnosis: Right Degenerative Joint Disease Post-Op Diagnosis: Right Degenerative Joint Disease I identified the patient and participated in the time-out.: Yes Procedure Operation Date: 01/25/20 08:30 Actual Procedures p Right Uni Compartment Knee Arthroplasty(Right) - Marcos Encarnacion DO Surgeon Marcos Encarnacion, Stop Attacher Marcos Canales PAC Estimated Blood Loss 50 Findings Consistent with Post-Op Diagnosis Specimens Right femoral and tibial bone Complications none Disposition Disposition: Recovery Room Indications Cam is a pleasant 59-year-old male who presented my office with complaints of bilateral knee pain. X-rays showed mostly medial compartmental arthritis of the knees. I did a left unicompartmental knee arthroplasty on him 6 months ago and he did very well with that. He is elected to proceed with a right unicompartmental knee arthroplasty. Description of Procedure Implants used: I used a [employer] [place] unicompartmental knee arthroplasty system with a size medium femur, C tibia, and a size 5 mobile polyethylene bearing. All components were cemented in place with Palacos G cement. Cam arrived [facility] for the above procedure. He was seen in the preoperative holding area and the operative extremity was identified and signed. He was given a preoperative antibiotic, TXA, a spinal anesthetic and an adductor nerve block. He was taken back to the operating room and laid on the table in the supine position. He was given basic sedation. The operative knee was then prepped and draped in sterile fashion. A timeout was done, and the patient and the operative extremity was properly identified. A midline incision was made from the superior pole of the patella down to the tibial tubercle. Dissection was taken down to the extensor mechanism and a subvastus arthrotomy was used. The medial retinaculum was released and a small portion of the fat pad was excised. The knee was then placed in a leg singh and the intra-articular portion of the knee was exposed. The medial meniscus was removed. The ACL was intact and the lateral compartment was inspected and there were no signs of any chondral damage. Several sizing spoons were used to measure the distal femur and it measured to be a size medium.The tibial saw guide was then placed externally over the shaft of the tibia. A 4 mm G clamp was used to clamp the spoon with the external tibial saw guide. 2 pins were placed. A reciprocating saw was then used to resect the tibia just medial to the apex of the medial tibial spine. An oscillating saw was then used to resect the tibial plateau. The tibial bone was then removed. The tibia measured to be a size C. The trochlea was then exposed. A 4 mm drill was sent down the center of the femoral canal followed by a long intramedullary roc. A line was then marked in the center of the distal medial femoral condyle. A femoral drill guide was then placed and the IM link was used to connect the intramedullary roc to the femoral drill guide. A 4 mm drill was used in the upper pole of the drill guide and a 6 mm drill was used in the lower pole of the drill guide. The drill guide was then removed. A posterior resection guide was then placed in the posterior femur was resected. A 0 spigot was then impacted in the 6 mm drill hole. The distal femur was then milled and osteophytes were removed. Femoral and tibial trials were then placed. A size 5 feeler gauge was used to measure the flexion gap in 100 of flexion. A size 3 feeler gauge was used to measure the extension gap in full extension. Trials were then removed and a size 2 spigot was then impacted in the 6 mm hole. The distal femur was once again milled. The anti-impingement guide was then impacted into place and an anterior mill was used to remove anterior bone and create clearance for the front of the bearing. The tibial template was then placed and the keel cut saw was used to resect for the keeled component. Trial components were then placed along with a size 5 mobile-bearing. The knee was brought through a full range of motion and felt to be stable. All trial components were then removed. Surrounding soft tissues were then injected with 50 cc of a pain control cocktail. Drill holes were placed in the distal femur to help with cement integration. The femoral and tibial components were then cemented in place with Palacos G cement. The size 5 mobile-bearing was then snapped into place. The knee was brought through a full range of motion and felt to be stable. The joint was then irrigated with normal saline solution. The tourniquet was deflated and hemostasis was obtained. The extensor mechanism was then closed with #1 Vicryl suture. Skin was closed with 2-0 Vicryl, 3-0V lock suture, and amanda. A Silverlon and a compressive dressing were placed. He was then transferred to a hospital bed and taken to the postanesthesia care unit in stable condition. He tolerated the procedure well. Marcos Canales PA-C, was present for the entire procedure. He was critical for patient positioning, prepping, draping, retraction exposure, wound closure and application of sterile dressing. I attest to the content of the Intraoperative Record and any orders documented therein. Any exceptions are noted below.
[2020-01-25] MEDS ORDERED: NALOXONE HCL 0.4 MG/1 ML VIAL/CARP ONE (11:11)
[2020-01-25] MEDS: NALOXONE HCL 0.4 MG/1 ML VIAL/CARP IV PRN ×2 (11:16→11:21)
--- NOTE | 2020-01-25 11:35 | XRay Report ---
TWO VIEWS RIGHT KNEE CLINICAL HISTORY: Postoperative examination. FINDINGS: AP and crosstable lateral portable views of the right knee are obtained. A right knee hemia rthroplasty of the medial compartment is in near anatomic alignment. Mild/moderate joint narrowing is seen at the patellofemoral articulation. There are lateral marginal osteophytes and patellar entheso phytes. No acute fracture is seen. There are expected postoperative changes around the knee including skin clips, soft tissue edema, and subcutaneous gas. IMPRESSION: Expected postoperative changes status post right knee hemiarthroplasty procedure. No acut e fracture is seen. ACT 112: Negative or not required by law. Electronically signed by: Keith Sands M.D. 01/25/2020 11:33 AM
--- NOTE | 2020-01-25 12:02 | Anesthesiology Progress Note ---
Date of Service January 25, 2020 Anesthesia Post Procedure Vital Signs Vital Signs: Temp Pulse Resp BP BP Pulse Ox 01/25/20 11:50 72 20 142/90 H 97 01/25/20 11:40 69 16 139/83 97 01/25/20 11:30 82 14 126/81 95 01/25/20 11:20 75 12 125/83 95 01/25/20 11:10 78 10 L 139/87 91 01/25/20 11:00 79 10 L 156/86 H 93 01/25/20 10:50 77 10 L 121/87 95 01/25/20 10:40 79 10 L 133/82 95 01/25/20 10:36 36.2 C L 82 10 L 154/84 H 93 01/25/20 06:51 36.8 C 55 L 20 152/90 H 95 Transfer of Care Handoff Completed per policy Notes Mental Status: alert / awake / arousable and participated in evaluation Patient Amnestic to Procedure: Yes Nausea / Vomiting: adequately controlled Pain: adequately controlled Airway Patency, RR, SpO2: stable & adequate BP & HR: stable & adequate Hydration State: stable & adequate Anesthetic Complications: no major complications apparent and Pt Satisfied with anesthetic care
[2020-01-25] MEDS ORDERED: oxyCODONE HCL IR 5 MG TAB (IMMEDIATE RELEASE) PO PRN (12:53)
[2020-01-25] MEDS ORDERED: METOCLOPRAMIDE HCL INJ 5 MG/ML 2 ML VIAL IV PRN (12:53)
[2020-01-25] MEDS ORDERED: SODIUM CHLORIDE 0.9% 1000ML 1,000 ML IV SCH (12:53)
[2020-01-25] MEDS ORDERED: HYDROmorphone INJ 0.5 MG/0.5 ML SYR IV PRN (12:53)
[2020-01-25] MEDS ORDERED: NALOXONE HCL 0.4 MG/1 ML VIAL/CARP IV PRN (12:53)
[2020-01-25] MEDS ORDERED: MAGNESIUM HYDROXIDE SUSP 30 ML UDC PO PRN (12:53)
[2020-01-25] MEDS ORDERED: bisacodyL 10 MG SUPP PR PRN (12:53)
[2020-01-25] MEDS ORDERED: ACETAMINOPHEN 500 MG TAB PO SCH (14:00)
[2020-01-25] MEDS ORDERED: KETOROLAC 30 MG/ML VIAL IV SCH (14:00)
--- NOTE | 2020-01-25 14:53 | Orthopedic Progress Note ---
Date of Service January 25, 2020 Assessment & Plan (1) Status post right partial knee replacement: Overall he is doing well. He has been ambulating with physical therapy. He is on aspirin for DVT prophylaxis. He still feeling a little bit nauseous but he feels safe to return home. His feels she is able to take care of him. He can be discharged home today. He will follow-up with orthopedics in 2 weeks. Present on Admission?: No Admission and Anticipated Discharge Date Admission Date: January 25, 2020 Bhavana Levy was seen and examined at bedside. Overall is doing fairly well. Has been able to ambulate up and down the hallways. Is not in any pain in his right knee. He is a little bit nauseous. He has no other complaints. Physical Exam Physical Exam: On physical examination of his right knee, the dressing is clean and dry. He is sitting with his knee flexed at 90 degrees. He is neurovascularly intact. Results & Data ([facility]) Vital Signs (Past 12 Hours) Vital Signs Temp Pulse Resp BP BP Pulse Ox 01/25/20 13:30 62 18 132/83 94 01/25/20 12:20 36.3 C L 67 16 115/72 96 01/25/20 12:10 57 L 18 117/73 97 01/25/20 12:00 50 L 13 130/80 97 01/25/20 11:50 72 20 142/90 H 97 01/25/20 11:40 69 16 139/83 97 01/25/20 11:30 82 14 126/81 95 01/25/20 11:20 75 12 125/83 95 01/25/20 11:10 78 10 L 139/87 91 01/25/20 11:00 79 10 L 156/86 H 93 01/25/20 10:50 77 10 L 121/87 95 01/25/20 10:40 79 10 L 133/82 95 01/25/20 10:36 36.2 C L 82 10 L 154/84 H 93 01/25/20 06:51 36.8 C 55 L 20 152/90 H 95 Diagnostic Findings Postoperative x-rays of the right knee show the prosthesis to be in anatomic alignment without any evidence of fracture, dislocation, or loosening. PG Care Time/CCT Total # of Minutes Spent Total Time Spent with Patient: Total time spent is greater than 50% in coordination of care (as documented) at patient's floor/unit and/or counseling patient: Coding Level of Care Code None Diagnoses Status post right partial knee replacement Z96.651
--- NOTE | 2020-01-25 14:54 | Discharge Summary ---
Date of Service January 25, 2020 Admission HPI Per Admitting Provider Cam is a pleasant 59-year-old male who I did a left partial knee replacement on in June 2019. He did very well with that. Unfortunately he has been dealing with right knee pain. X-rays clinical examination have been diagnostic for advanced medial compartment arthritis of the right knee. After failing conservative treatment, he has elected proceed with a right unicompartmental knee arthroplasty. Principal Diagnosis Right partial knee replacement Discharge Data Allergies Allergy/AdvReac Type Severity Reaction Status Date / Time No Known Allergies Allergy Verified 01/25/20 07:04 Consultations 01/25/20 12:53 Consult Case Management - Discharge Planning Routine Procedures Performed Operation Date: 01/25/20 08:30 Actual Procedures p Right Uni Compartment Knee Arthroplasty(Right) - Marcos Encarnacion DO Ordered Studies 01/25/20 05:00 US - OR guided needle placemen Routine Hospital Course (1) Status post right partial knee replacement: On January 25, 2020 Cam arrived at [facility] and underwent a right partial knee replaced without complication. He had a general anesthetic and a right adductor nerve block. Postoperatively he was started on aspirin treated for DVT prophylaxis and transferred to the general orthopedic floors. Overall he did very well. He was seen by physical therapy the day of surgery and was able to ambulate up and down the hallways. He was having a little bit of nausea but it was controlled. He was then discharged home. He will follow- up with orthopedics in 2 weeks. Total Time Total Time Spent Total Time Spent (In Minutes): 20 Discharge Plan Discharge Items Patient Disposition: Home - Home Health Services Reason For Visit: Right Degenerative Joint Disease Discharge Diagnosis: Right partial knee replacement Activity: As commented below Non-emergency contact: Surgeon Call non-emergency contact if: your wound has increased redness and your wound has increased drainage Follow-up/Referrals: Tobin Sawyer MD [Primary Care Provider] - Diet: Regular Addtl Attending Provider Instructions: Activity and Therapy Recommendations: * If you are using [facility] then therapy will be provided at your home until they feel you have accomplished all of your goals. * If you are using [facility] then Physical Therapy will be provided until they feel you are ready to start Outpatient Physical Therapy. * If you are not using home therapy then Outpatient Physical Therapy should start about 3-5 days from your day of surgery. Therapy will last about 6-10 weeks * It is important not to put a pillow under your knee when you are relaxing or sleeping. It is just as important to make sure you are getting your knee perfectly straight as it is to regain your knee bend. * You were shown a series of exercises in the hospital. Do these exercises three times each day including the exercises you were shown in physical therapy. * Get up and walk several times each day. For the first four weeks, try not to stand or walk for more than one hour at a time. If you do stand or walk for more than one hour, you will not hurt anything, but your leg will likely swell. * As you feel comfortable, you may change from the walker or crutches to a cane and then to independent walking. Medications: * Narcotic You will likely be sent home from the hospital with a prescription for the narcotic pain medication that worked best throughout your stay. * Aspirin Most patients will be required to take Aspirin 81mg twice a day for 6 weeks after surgery. This is obtained [id number] and a prescription is not necessary. * Other medications may be prescribed for specific circumstances. If you have any questions, please call the office at . * Resume previous home medications unless otherwise instructed TEDs/Elastic Stockings: The white elastic stockings help limit swelling and prevent blood clots from forming in your legs.~ The more you wear them, the more they work. Wear them for six weeks. Dressing Care: Leave the Silverlon dressing in place for 7 days. After 7 days you may remove the dressing. If the incision is not draining then you may leave the amanda open to air. If there is a little bit of drainage or if the amanda are getting stuck on your clothing then cover the incision with a dry dressing. The amanda will be removed at your 2 week follow-up appointment. Showering: You may shower with the Silverlon dressing in place. Do not let the shower spray hit the dressing directly. Pat the Silverlon dressing dry. If the dressing becomes wet underneath, then simply remove the dressing. Keep the incision dry until you are 7 days out from the day of surgery. After 7 days you may remove the Silverlon dressing and shower with the amanda exposed. Let soapy water run over the amanda and pat them dry. Do not scrub or soak the incision. Things To Watch For: * Drainage from the incision site that occurs more than one week after your surgery. * Increased redness at the incision site. * Fever above 102 degrees Fahrenheit. * Unusual chest pain or shortness of breath. * Call [facility] at with any of the above problems Follow-Up Visit: Follow-up with Dr. Encarnacion's PA (Marcos Canales) 2-3 weeks after your day of surgery. He will remove your amanda and answer any questions. If you have any additional questions or concerns, Dr Encarnacion is usually in the office at the same time and will be available An appointment was probably scheduled when you signed-up for surgery in the office. If you have any questions call Office Instructions: More detailed instructions as well as Frequently Asked Questions were provided in a folder by our office when you signed-up for surgery. Please review these instructions when you get home. If you have any further questions or concerns, please feel free to call the office at [phone] Pending Studies at Discharge: No Stand-Alone Forms: [facility] Medications and DC Order Prescriptions: New oxycodone 5 mg tablet 5 mg PO Q6H PRN (Reason: pain) Qty: 30 RF: 0 Continued amoxicillin 500 mg tablet 2,000 mg PO ONCE PRN (Reason: prophylaxis) Qty: 4 RF: 2 naproxen sodium [Aleve] 220 mg capsule 220 mg PO QAM PRN (Reason: Pain) RF: 0 cholecalciferol (vitamin D3) 1,000 unit capsule 1,000 units PO QAM RF: 0 Discharge Orders: Discharge Order (Routine); Ordered 01/25/20 Ordered By: Marcos Encarnacion Admission Data Admit Date/Time: 01/25/20 10:19 Attending Provider: Marcos Encarnacion Admit Provider: Marcos Encarnacion Primary Care Provider: Tobin Sawyer Coding Level of Care Code D/C Day Management <30 mins Diagnoses Status post right partial knee replacement Z96.651
[2020-01-25] MEDS ORDERED: ceFAZolin 2000MG 2,000 MG/15 ML SYR IV SCH (16:00)
[2020-01-25] MEDS ORDERED: SENNA 8.6 MG TAB PO SCH (21:00)
[2020-01-25] MEDS ORDERED: ASPIRIN 81 MG ECTAB PO SCH (21:00)
[2020-01-25] MEDS ORDERED: DOCUSATE SODIUM 100 MG CAP PO SCH (21:00)
[2020-01-26] MEDS ORDERED: dexAMETHasone 4 MG TAB PO SCH (08:00)
[2020-01-26] MEDS ORDERED: MULTIVITAMIN TAB PO SCH (09:00)
[2020-01-26] MEDS ORDERED: CHOLECALCIFEROL 1,000 UNITS 25 MCG TAB PO SCH (09:00)
== END 2020-01-25 17:00 | disposition home or self-care (01) ==
LOC: 3W 06:31 → ASU 06:31
DX: M17.11 Unilateral primary osteoarthritis, right knee

== ENCOUNTER 2020-02-08 08:48 | Inpatient (IN) ==
[2020-02-08] MEDS ORDERED: ADENOSINE IV SOLN 3 MG/ML 2 ML VIAL IV ONE (09:20)
[2020-02-08] MEDS ORDERED: ADENOSINE IV SOLN 3 MG/ML 2 ML VIAL IV STA (09:23)
[2020-02-08] MEDS ORDERED: dilTIAZem HCl 5 MG/ML 5 ML VIAL IV STA (09:24)
[2020-02-08] MEDS ORDERED: SODIUM CHLORIDE 0.9% 1000ML 1,000 ML IV ONE (09:24)
[2020-02-08] MEDS ORDERED: STAT IV Infusion **Titration per Protocol STA (09:24)
[2020-02-08 09:41] LABS: Basophils # (auto) 0.01 K/uL (0-0.2); Basophils % (auto) 0.2 %; Eosinophils # (auto) 0.17 K/uL (0-0.5); Eosinophils % (auto) 2.7 %; Hematocrit (blood only) 47.4 % (42-52); Hemoglobin 16.3 g/dL (14.0-18.0); Immature Granulocytes # (auto) 0.03 K/uL (0.00-0.02); Immature Granulocytes % (auto) 0.5 %; Lymphocytes # (auto) 1.22 K/uL (1.2-3.4); Lymphocytes % (auto) 19.3 %; Mean Corpuscular Hemoglobin 32.5 pg (25-34); Mean Corpuscular Hgb Conc 34.4 g/dL (32-36); Mean Corpuscular Volume 94.6 fL (80-100); Mean Platelet Volume 9.5 fL (7.4-10.4); Monocytes # (auto) 0.43 K/uL (0.11-0.59); Monocytes % (auto) 6.8 %; Neutrophils # (auto) 4.45 K/uL (1.4-6.5); Neutrophils % (auto) 70.5 %; Platelet Count 286 K/uL (130-400); RDW Standard Deviation 44.8 fL (36.4-46.3); Red Blood Count 5.01 M/uL (4.7-6.1); White Blood Count 6.31 K/uL (4.8-10.8)
[2020-02-08 09:55] LABS: Alanine Aminotransferase 26 U/L (12-78); Albumin Level 3.7 gm/dl (3.4-5.0); Aspartate Aminotransferase 22 U/L (15-37); BUN Creatinine Ratio 12.3 (10-20); Blood Urea Nitrogen 18 mg/dl (7-18); Calcium 8.6 mg/dl (8.5-10.1); Carbon Dioxide 24 mmol/L (21-32); Chloride 103 mmol/L (98-107); Creatinine Clr Calc Pharmacy 62.2 ml/min; Est GFR (African American) 59.1; Glucose 159 mg/dl (70-99); Lipase 85 U/L (73-393); Potassium 3.9 mmol/L (3.5-5.1); Sodium 137 mmol/L (136-145)
[2020-02-08 09:58] LABS: Prothrombin Time 10.6 Seconds (9.0-12.0)
[2020-02-08 10:00] LABS: D Dimer 2000 ug/L FEU (0-500)
[2020-02-08 10:05] LABS: Albumin Globulin Ratio 1.1 (0.9-2); Alkaline Phosphatase 67 U/L (45-117); Bilirubin,Total 0.6 mg/dl (0.2-1); Globulin 3.3 gm/dl (2.5-4.0); NT Pro B Type Natriuretic Pept 688 pg/ml (0-900); Troponin I < 0.015 ng/ml (0-0.045)
--- NOTE | 2020-02-08 10:05 | Emergency Department Note ---
History of Present Illness General Chief complaint: Arrhythmia/Palpitations Stated complaint: ABNORMAL HEART BEAT Time Seen by Provider: 02/08/20 09:08 Source: patient and family Mode of arrival: ambulatory Limitations: no limitations History of Present Illness Provider complaint: palpitations Onset (ago): day(s) Maximum Pain Intensity: 0 Quality: + constant Relieved By: + none Exacerbated By: + movement Associated symptoms: + shortness of breath Treatments prior to arrival: none This is a 59 yo male who presents with complaints of palpitations. Pt states symptoms began yesterday but weren't as bad. Today symptoms have continued and pt admits to accompanying shortness of breath, lightheadedness, and mild nausea without vomiting. No recent change in medications, no recent illness. No change in activity. Pt did have surgery recently on the RLE at his knee. He feels this has been healing as expected. No hx of DVT/PE. No prior hx of dy srhythmia. Pt states he has been getting intermittent, milder symptoms over many months maybe up to year, however they usually don't last this long and go away on their own. Pt doesn use alcohol intermittently, although he hasn't noticed a pattern of these episodes with alcohol use. States minimal caffeine use, no recreational drug use. No family hx of dysrhythmia. No prior cardiac evaluation. Pt states he did go to his PCP about these recently and wore a Holter monitor for a day - no episodes occurred while wearing this and so his PCP was going to refer him to cards for a longer event monitor. Pt seen during a time of high acuity and national emergency pandemic while wearing PPE. Home Medications Home Medications Medication Instructions Recorded Confirmed Type cholecalciferol (vitamin D3) 25 1,000 units PO QAM 02/19/19 02/08/20 History mcg (1,000 unit) capsule amoxicillin 500 mg tablet 2,000 mg PO ONCE PRN #4 tab 10/11/19 02/08/20 Rx oxycodone 5 mg PO Q6H PRN #30 tab 01/25/20 02/08/20 Rx tadalafil 20 mg PO UD PRN 02/08/20 02/08/20 History flecainide 100 mg PO Q12 #60 tab 02/09/20 Rx metoprolol succinate 12.5 mg PO QAM #15 tab 02/09/20 Rx rivaroxaban [Xarelto] 20 mg PO QDD #30 tab 02/09/20 Rx Allergies Allergy/AdvReac Type Severity Reaction Status Date / Time No Known Allergies Allergy Verified 02/08/20 10:07 Past Med/Surg History Medical History Arthritis Atrial flutter Surgical History History of mandibular surgery under-bite repair History of prosthetic unicompartmental arthroplasty of left knee (~06/2019) 06/15/2019 [facility] Hx of colonoscopy Status post right partial knee replacement (~01/2020) Family History Sister PONV (postoperative nausea and vomiting) Social History Smoking Status: Never smoker Second Hand Exposure: No; Hx Alcohol Use: Yes Alcohol type: hard liquor Hx Substance Use: No Preferred Language: [place] Citizen Communication Ability: Effective Private Branch Exchange Service Advisor Required: No Beliefs That Will Affect Care: None marital status: Current Living Situation: Spouse Feels Safe at Home: Yes Assistive Devices: None Review of Systems See HPI for pertinent positives & negatives. and A total of 10 systems reviewed and were otherwise negative Physical Exam Vital Signs Vital Signs - 24 hr 02/08/20 08:58 02/08/20 09:10 02/08/20 09:31 Temperature 36.5 C Temperature Source Oral Pulse Rate 103 H Pulse Rate [Apical] 145 H Respiratory Rate 20 20 Blood Pressure 111/75 Blood Pressure [Left Arm] 113/89 Blood Pressure Mean 87 Blood Pressure Mean [Left Arm] 97 Pulse Oximetry 97 100 98 Oxygen Delivery Method Room Air Room Air Room Air Sepsis Recent Fever Within 48 Hours No Sepsis New/Unexplained Change in Mental Status N/A Sepsis Action Taken by Nursing No Action Required 02/08/20 10:21 Temperature Temperature Source Pulse Rate Pulse Rate [Apical] 96 H Respiratory Rate 22 Blood Pressure Blood Pressure [Left Arm] 135/77 Blood Pressure Mean Blood Pressure Mean [Left Arm] 96 Pulse Oximetry 96 Oxygen Delivery Method Room Air Sepsis Recent Fever Within 48 Hours Sepsis New/Unexplained Change in Mental Status Sepsis Action Taken by Nursing GENERAL: alert, well appearing, well nourished, no distress, non-toxic EYE EXAM: normal conjunctiva, PERRL and EOM's grossly intact OROPHARYNX: no exudate, no erythema, lips, buccal mucosa, and tongue normal and mucous membranes are moist NECK: supple, no nuchal rigidity, no adenopathy, non-tender LUNGS: Clear to auscultation. Normal chest wall mechanics, no w/r/r HEART: no murmurs, S1 normal and S2 normal, tachycardic on tele ABDOMEN: abdomen soft, non-tender, normo-active bowel sounds, no masses, no rebound or guarding. BACK: Back is symmetrical on inspection and there is no deformity, no midline tenderness, no CVA tenderness. SKIN: no rashes and no bruising UPPER EXTREMITIES: upper extremities are grossly normal. FROM, nml pulses b/l. LOWER EXTREMITIES: No pitting edema. FROM, nml pulses b/l. RLE with dressing in place over right knee. NEURO EXAM: Normal sensorium, cranial nerves II-XII grossly intact, normal speech, no gross weakness of arms, no gross weakness of legs. Gross sensation intact. Course Course 929: Given HR, unclear initial rhythm although high suspicion for a.fib/a.flutter. Discussed with pt using adenosine to diagnose underlying rhythmn and pt in agreement. Additional equipment brought to the room and pt given 6mg adenosine which slowed the HR and revealed a.flutter. Pt recovered without incident and HR returned to 150's. Discussed additional evaluation and IV rate controlling agent. 1052: Patient updated on results and plan. 1102: Case discussed with Dr. Klein, hospitalist service. Administered Medications Discontinued Medications Adenosine (Adenosine Iv Soln 3 Mg/Ml 2 Ml Vial) Confirm Administered Dose 6 mg IV .STBaravento-MED ONE Stop: 02/08/20 09:21 Last Admin: 02/08/20 09:27 Dose: 6 mg Documented by: [id number] Adenosine (Adenosine Iv Soln 3 Mg/Ml 2 Ml Vial) 6 mg IV NOW STA Stop: 02/08/20 09:24 Last Admin: 02/08/20 09:27 Dose: Not Given Documented by: [id number] Diltiazem HCl (Diltiazem Hcl 5 Mg/Ml 5 Ml Vial) 15 mg IV NOW STA Stop: 02/08/20 09:25 Last Admin: 02/08/20 09:33 Dose: 15 mg Documented by: [id number] Cosigned by: [id number] Flecainide Acetate (Flecainide Acetate 100 Mg Tablet) 100 mg PO Q12 VLADIMIR Stop: 03/10/20 08:59 Last Admin: 02/09/20 08:28 Dose: 100 mg Documented by: [id number] Flecainide Acetate (Flecainide Acetate 100 Mg Tablet) 300 mg PO ONE ONE Stop: 02/08/20 17:31 Last Admin: 02/08/20 18:52 Dose: 300 mg Documented by: [id number] Diltiazem HCl 125 mg/ Dextrose 125 mls @ 5 mls/hr IV .Q24H VLADIMIR; Protocol Stop: 03/09/20 09:29 Last Admin: 02/09/20 08:28 Dose: 5 mg/hr, 5 mls/hr Documented by: [id number] Cosigned by: [id number] Titration: 02/09/20 08:28 Dose: 5 mg/hr, 5 mls/hr Documented by: [id number] Cosigned by: [id number] Titration: 02/09/20 03:08 Dose: 5 mg/hr, 5 mls/hr Documented by: [id number] Cosigned by: [id number] Titration: 02/08/20 23:16 Dose: 5 mg/hr, 5 mls/hr Documented by: [id number] Cosigned by: [id number] Titration: 02/08/20 15:15 Dose: 5 mg/hr, 5 mls/hr Documented by: [id number] Cosigned by: [id number] Titration: 02/08/20 10:55 Dose: 5 mg/hr, 5 mls/hr Documented by: [id number] Cosigned by: [id number] Admin: 02/08/20 10:23 Dose: 2.5 mg/hr, 2.5 mls/hr Documented by: [id number] Cosigned by: [id number] Sodium Chloride (Nss 1000ml) 1,000 mls @ 999 mls/hr IV .Q1H1M ONE Stop: 02/08/20 10:24 Last Infusion: 02/08/20 10:33 Dose: 0 mls/hr Documented by: [id number] Admin: 02/08/20 09:30 Dose: 999 mls/hr Documented by: [id number] Influenza Virus Vaccine Quadrival (Influenza Virus Quad Vaccine 0.5 Ml Syr) 0.5 ml IM .ONCE ONE Stop: 02/08/20 12:19 Last Admin: 02/09/20 11:08 Dose: 0.5 ml Documented by: [id number] Ioversol (Optiray 320 125ml) 120 ml IV ONCE ONE Stop: 02/08/20 10:13 Last Admin: 02/08/20 10:13 Dose: 120 ml Documented by: [id number] Metoprolol Succinate (Metoprolol Succ 25mg Ext Rel Tab) 12.5 mg PO QAM VLADIMIR Stop: 03/10/20 10:59 Last Admin: 02/09/20 11:08 Dose: 12.5 mg Documented by: [id number] Miscellaneous (Stat Iv Infusion Titration Per Protocol) 1 ea N/A NOW STA Stop: 02/08/20 09:25 Last Admin: 02/08/20 11:08 Dose: Not Given Documented by: [id number] Critical Care Time Critical Care Time: Yes Total Critical Care Time: 42 Critical care of 42 min performed to assess and manage high likelihood of life- threatening dysrhythmia, involving labs and imaging performed with assessment to evaluate dysrhythmia diagnosis with frequent reassessment. This time includes bedside time, treatment discussions with patient/family/consultants, documentation time and excludes procedure time. Medical Decision Making Differential Diagnosis Differential diagnosis includes etiologies such as premature contractions, electrolyte abnormality, cardiac dysrhythmia, thyroid dysfunction, pulmonary embolism, infection, gastrointestinal, as well as others were entertained. Medical Records Attestation: I reviewed the patient's medical records. Home Medications Current Medication List: was personally reviewed by me Laboratory Data Attestation: I reviewed the patient's lab results. Result diagrams: 02/09/20 05:17 02/09/20 05:17 Lab Results 02/08/20 02/08/20 02/08/20 Range/Units 09:05 09:05 09:05 WBC 6.31 (4.8-10.8) K/uL RBC 5.01 (4.7-6.1) M/uL Hgb 16.3 (14.0-18.0) g/dL Hct 47.4 (42-52) % MCV 94.6 (80-100) fL MCH 32.5 (25-34) pg MCHC 34.4 (32-36) g/dL RDW Std Deviation 44.8 (36.4-46.3) fL RDW Coeff of Jim 13.0 (11.5-14.5) % Plt Count 286 (130-400) K/uL MPV 9.5 (7.4-10.4) fL Immature Gran % (Auto) 0.5 % Neut % (Auto) 70.5 % Lymph % (Auto) 19.3 % Isabela % (Auto) 6.8 % Eos % (Auto) 2.7 % Baso % (Auto) 0.2 % Neut # (Auto) 4.45 (1.4-6.5) K/uL Lymph # (Auto) 1.22 (1.2-3.4) K/uL Isabela # (Auto) 0.43 (0.11-0.59) K/uL Eos # (Auto) 0.17 (0-0.5) K/uL Baso # (Auto) 0.01 (0-0.2) K/uL Immature Gran # (Auto) 0.03 H (0.00-0.02) K/uL PT 10.6 (9.0-12.0) Seconds INR 1.0 (0.9-1.1) D-Dimer 2000 H* (0-500) ug/L FEU Sodium 137 (136-145) mmol/L Potassium 3.9 (3.5-5.1) mmol/L Chloride 103 (98-107) mmol/L Carbon Dioxide 24 (21-32) mmol/L Anion Gap 10.0 (3-11) BUN 18 (7-18) mg/dl Creatinine 1.49 H (0.6-1.4) mg/dl Est Cr Clr Drug Dosing 62.2 ml/min Est GFR ( Amer) 59.1 Est GFR (Non-Af Amer) 51.0 BUN/Creatinine Ratio 12.3 (10-20) Glucose 159 H (70-99) mg/dl Calcium 8.6 (8.5-10.1) mg/dl Magnesium 2.0 (1.8-2.4) mg/dl Total Bilirubin 0.6 (0.2-1) mg/dl AST 22 (15-37) U/L ALT 26 (12-78) U/L Alkaline Phosphatase 67 (45-117) U/L Troponin I < 0.015 (0-0.045) ng/ml NT-Pro-B Natriuret Pep 688 (0-900) pg/ml Total Protein 7.0 (6.4-8.2) gm/dl Albumin 3.7 (3.4-5.0) gm/dl Globulin 3.3 (2.5-4.0) gm/dl Albumin/Globulin Ratio 1.1 (0.9-2) Lipase 85 (73-393) U/L TSH 1.910 (0.300-4.500) uIu/ml Lyme Disease IgG Ab (Negative) Lyme Disease IgM Ab (Negative) 02/08/20 Range/Units 09:05 WBC (4.8-10.8) K/uL RBC (4.7-6.1) M/uL Hgb (14.0-18.0) g/dL Hct (42-52) % MCV (80-100) fL MCH (25-34) pg MCHC (32-36) g/dL RDW Std Deviation (36.4-46.3) fL RDW Coeff of Jim (11.5-14.5) % Plt Count (130-400) K/uL MPV (7.4-10.4) fL Immature Gran % (Auto) % Neut % (Auto) % Lymph % (Auto) % Isabela % (Auto) % Eos % (Auto) % Baso % (Auto) % Neut # (Auto) (1.4-6.5) K/uL Lymph # (Auto) (1.2-3.4) K/uL Isabela # (Auto) (0.11-0.59) K/uL Eos # (Auto) (0-0.5) K/uL Baso # (Auto) (0-0.2) K/uL Immature Gran # (Auto) (0.00-0.02) K/uL PT (9.0-12.0) Seconds INR (0.9-1.1) D-Dimer (0-500) ug/L FEU Sodium (136-145) mmol/L Potassium (3.5-5.1) mmol/L Chloride (98-107) mmol/L Carbon Dioxide (21-32) mmol/L Anion Gap (3-11) BUN (7-18) mg/dl Creatinine (0.6-1.4) mg/dl Est Cr Clr Drug Dosing ml/min Est GFR ( Amer) Est GFR (Non-Af Amer) BUN/Creatinine Ratio (10-20) Glucose (70-99) mg/dl Calcium (8.5-10.1) mg/dl Magnesium (1.8-2.4) mg/dl Total Bilirubin (0.2-1) mg/dl AST (15-37) U/L ALT (12-78) U/L Alkaline Phosphatase (45-117) U/L Troponin I (0-0.045) ng/ml NT-Pro-B Natriuret Pep (0-900) pg/ml Total Protein (6.4-8.2) gm/dl Albumin (3.4-5.0) gm/dl Globulin (2.5-4.0) gm/dl Albumin/Globulin Ratio (0.9-2) Lipase (73-393) U/L TSH (0.300-4.500) uIu/ml Lyme Disease IgG Ab Negative (Negative) Lyme Disease IgM Ab Negative (Negative) Imaging Data Radiologist's Impression: CT ANGIOGRAM OF THE CHEST CLINICAL HISTORY: Palpitations. Atrial flutter. COMPARISON STUDY: Chest x-ray dated 05/16/2019. TECHNIQUE: Following the IV administration of 120 cc of Optiray 320, CT angiogram of the chest was performed from the upper abdomen to the thoracic inlet utilizing the pulmonary embolus protocol. Images are reviewed in the axial, sagittal, and coronal planes. 3-D MIPS images are created and assessed. IV contrast was administered without complication. A dose lowering technique wa s utilized adhering to the principles of ALARA. CT DOSE: 526.03 mGy.cm FINDINGS: Thyroid: Imaged portions of the thyroid gland are normal in size and attenuation. Thoracic aorta: The thoracic aorta is normal in caliber and demonstrates standard 3-vessel arch anatomy. The thoracic aorta is not well opacified. Pulmonary vasculature: The pulmonary trunk is normal in caliber. There are no filling defects identified in main, lobar, or segmental pulmonary branches to suggest pulmonary embolus. Heart: The heart is enlarged and without pericardial effusion. Lungs and pleural spaces: Evaluation of lung parenchyma is degraded by motion artifact. No airspace consolidation or pleural effusion is identified. The trachea and central airways are clear. Dependent atelectasis is seen bilaterally. Mediastinum: There is no mediastinal lymphadenopathy. Dahlia: Clear. Axillae: There is no axillary lymphadenopathy. Upper abdomen: There is a small hiatal hernia. Partially visualized upper abdominal viscera is otherwise within normal limits. Skeletal structures: No lytic or blastic bony lesions are seen. IMPRESSION: 1. There is no evidence of pulmonary embolus in the main, lobar, or segmental pulmonary arteries. 2. Cardiomegaly. 3. There is no airspace consolidation or pleural effusion. ACT 112: Negative or not required by law. Electronically signed by: Keith Sands M.D. 02/08/2020 10:28 AM Blood Pressure Blood Pressure Findings: Normal blood pressure MDM Narrative Pt here with palpitations lasting longer than prior episodes. Pt with tachycardia in the 150's on tele, adenosine given to slow rate down to better diagnose and was found to have a.flutter. Labs sent, pt started on cardizem bolus and drip. Dimer added due to recent surgery and was elevated, so pt sent for CTA chest. No PE noted, CT otherwise reassuring. Labs reassuring. Given chronicity of symptoms and difficulty controlling a.flutter potentially, case discussed with hospitalist for additional evaluation. Pt aware of all results, verbalized understanding of need for additional evaluation and tx and was in agreement with the plan. An order was placed for continuous cardiac monitoring. The monitor shows a rate of _115_ with a.flutter_ rhythm. Impression & Plan Palpitations, Atrial flutter, KEIRA (acute kidney injury) Discharge Plan Visit Data Chief Complaint: Arrhythmia/Palpitations Stated Complaint: ABNORMAL HEART BEAT ED Provider: Adele Miner Discharge Problem: Palpitations, Atrial flutter, KEIRA (acute kidney injury) Patient Disposition: Admitted As Inpatient Condition: Good Discharge Instructions Interventions: ED Discharge Assessment Last Done: 02/08/20 11:42 Discharge Problem: Atrial flutter Qualifiers: Atrial flutter type: unspecified Qualified Code(s): I48.92 - Unspecified atrial flutter
[2020-02-08] MEDS ORDERED: OPTIRAY 320 125ml IV ONE (10:12)
[2020-02-08 10:13] LABS: Lyme Ab IgG w/WB Rflx Negative (Negative); Lyme Ab IgM w/WB Rflx Negative (Negative)
[2020-02-08] MEDS: dilTIAZem HCL 125 MG in DEXTROSE 5% 100 ML IV SCH (10:23)
--- NOTE | 2020-02-08 10:30 | CT Scan Report ---
CT ANGIOGRAM OF THE CHEST CLINICAL HISTORY: Palpitations. Atrial flutter. COMPARISON STUDY: Chest x-ray dated 05/16/2019. TECHNIQUE: Following the IV administration of 120 cc of Optiray 320, CT angiogram of the chest was pe rformed from the upper abdomen to the thoracic inlet utilizing the pulmonary embolus protocol. Images are reviewed in the axial, sagittal, and coronal planes. 3-D MIPS images are created and assessed. I V contrast was administered without complication. A dose lowering technique was utilized adhering to the principles of ALARA. CT DOSE: 526.03 mGy.cm FINDINGS: Thyroid: Imaged portions of the thyroid gland are normal in size and attenuation. Thoracic aorta: The thoracic aorta is normal in caliber and demonstrates standard 3-vessel arch anato my. The thoracic aorta is not well opacified. Pulmonary vasculature: The pulmonary trunk is normal in caliber. There are no filling defects identif ied in main, lobar, or segmental pulmonary branches to suggest pulmonary embolus. Heart: The heart is enlarged and without pericardial effusion. Lungs and pleural spaces: Evaluation of lung parenchyma is degraded by motion artifact. No airspace c onsolidation or pleural effusion is identified. The trachea and central airways are clear. Dependent atelectasis is seen bilaterally. Mediastinum: There is no mediastinal lymphadenopathy. Dahlia: Clear. Axillae: There is no axillary lymphadenopathy. Upper abdomen: There is a small hiatal hernia. Partially visualized upper abdominal viscera is otherw ise within normal limits. Skeletal structures: No lytic or blastic bony lesions are seen. IMPRESSION: 1. There is no evidence of pulmonary embolus in the main, lobar, or segmental pulmonary arteries. 2. Cardiomegaly. 3. There is no airspace consolidation or pleural effusion. ACT 112: Negative or not required by law. Electronically signed by: Keith Sands M.D. 02/08/2020 10:28 AM
[2020-02-08] MEDS ORDERED: ACETAMINOPHEN 325 MG TAB PO PRN (11:57)
[2020-02-08] MEDS ORDERED: ONDANSETRON INJ 2 MG/ML 2 ML VIAL IV PRN (11:57)
[2020-02-08] MEDS ORDERED: oxyCODONE HCL IR 5 MG TAB (IMMEDIATE RELEASE) PO PRN (12:08)
[2020-02-08] MEDS ORDERED: INFLUENZA VIRUS QUAD VACCINE 0.5 ML SYR IM ONE (12:18)
[2020-02-08] MEDS ORDERED: INFLUENZA ADMINISTRATION CHARGE ONE (12:18)
--- NOTE | 2020-02-08 12:23 | History & Physical Report ---
Date of Service February 08, 2020 Assessment & Plan (1) Atrial flutter: Atrial flutter seen on rhythm strip after pushing adenosine in the ED. On interview, he is converting, then jumping back into what appears to be the atrial flutter. HRs as low as 40s, then right up to 150s. TSH normal. No other inciting etiology noted. - Continue diltiazem gtt as able given the variable rates - Cardiology consulted - TTE ordered - Chads-Vasc is 0, so will not start anticoagulation at this point. (2) Acute kidney failure: Cr up to 1.5 on admission; unclear baseline. - Given some IV fluids in the ED; able to take PO at present. - Monitor Cr (3) Status post right partial knee replacement: S/p right partial TKA with Dr. Encarnacion on 01/25/2020. - Only taking Tylenol mostly at this point - Continue oxycodone PRN (only really taking it at night) - Continue ASA 81 mg PO BID for DVT ppx per surgery (4) DVT prophylaxis: ASA 81 mg PO BID for TKA Admission and Anticipated Discharge Date Admission Date: February 08, 2020 History of Present Illness Primary Care Provider: Tobin Sawyer MD 59yo M in excellent health who presents for atrial flutter. Has noted episodes for at least a few months and possibly a year. The episodes present as a racing heart sensation in his chest. Sometimes his heart is fast or irregular, or even pauses for a second. The episodes used to last a few minutes each, but more recently have been lasting several hours and once even over the entire night. He has been working with his PCP to capture an episode, but wasn't able to with a 24-hour Holter monitor. This episode began last night around 9pm and lasted until he came to the ER. He reports the racing sensation without any chest pain, shortness of breath, nausea, vomiting, lightheadedness, or other sensations. Nothing really makes it better or worse. In the ED, he was found to have a HR of 150. Adenosine revealed flutter waves. Diltiazem brought the HR down to ~100. He is also skipping in and out of sinus bradycardia. Allergies Allergy/AdvReac Type Severity Reaction Status Date / Time No Known Allergies Allergy Verified 02/08/20 10:07 Home Medications Home Medications Medication Instructions Recorded Confirmed Type cholecalciferol (vitamin D3) 25 1,000 units PO QAM 02/19/19 02/08/20 History mcg (1,000 unit) capsule naproxen sodium 220 mg capsule 220 mg PO QAM PRN 02/19/19 02/08/20 History amoxicillin 500 mg tablet 2,000 mg PO ONCE PRN #4 tab 10/11/19 02/08/20 Rx aspirin 81 mg PO BID 42 Days #84 tab 01/25/20 02/08/20 Rx oxycodone 5 mg PO Q6H PRN #30 tab 01/25/20 02/08/20 Rx tadalafil 20 mg PO UD PRN 02/08/20 02/08/20 History Past Med/Surg History Medical History (Updated 02/08/20 @ 12:20 by Nikko Klein MD) Arthritis Atrial flutter Surgical History History of mandibular surgery under-bite repair History of prosthetic unicompartmental arthroplasty of left knee (~06/2019) 06/15/2019 [facility] Hx of colonoscopy Status post right partial knee replacement (~01/2020) Family History Sister PONV (postoperative nausea and vomiting) Social History Smoking Status: Never smoker Second Hand Exposure: No; Do You Dip or Chew Tobacco: No; Tobacco Cessation Education Requested by Patient: No Hx Alcohol Use: Yes Alcohol type: hard liquor Hx Substance Use: No Preferred Language: Divehi Communication Ability: Effective S[place]ge[place] Operator Required: No Beliefs That Will Affect Care: None marital status: Current Living Situation: Spouse Other Information That Helps Us Care for You: No Feels Safe at Home: Yes Assistive Devices: None Review of Systems Review of Systems: All systems reviewed & are unremarkable except as noted in HPI & below Physical Exam Constitutional: WD/WN, vitals as above Eyes: EOM intact bilaterally; no conjunctival abnormality ENMT: external ear and nose normal, oropharynx normal Neck: trachea midline, no thyromegaly normal visual inspection Respiratory: normal respiratory effort, lungs clear to auscultation no respiratory distress Cardiovascular: Rate/Rhythm: + tachycardic and + irregularly irregular Heart Sounds: normal S1 and normal S2 Vessels: no JVD Extremities: no edema Gastrointestinal (Abdomen): Inspection/Auscultation: abdomen normal to inspection; abdomen not distended Musculoskeletal: no cyanosis or clubbing, extremities motor strength 5/5 Skin: no rashes, warm and dry Neurologic: moves all extremities and awake Psychiatric: Orientation: alert, oriented to person and cooperative Results & Data Results & Data ([facility]) Vital Signs (Past 12 Hours) Vital Signs Temp Pulse Pulse Resp BP BP Pulse Ox 02/08/20 11:42 90 20 113/80 99 02/08/20 11:30 92 H 20 113/80 94 02/08/20 11:15 96 H 19 119/77 96 02/08/20 11:00 117 H 22 111/90 97 02/08/20 10:21 96 H 22 135/77 96 02/08/20 09:31 145 H 20 113/89 98 02/08/20 09:10 100 02/08/20 08:58 36.5 C 103 H 20 111/75 97 Code Status & VTE Plan VTE Prophylaxis Plan VTE Prophylaxis will be ordered: Yes PG Care Time/CCT Total # of Minutes Spent Total Time Spent with Patient: Total time spent is greater than 50% in coordination of care (as documented) at patient's floor/unit and/or counseling patient: Coding Level of Care Code 73545 Initial Inpt Care Lvl 3 Diagnoses Atrial flutter I48.92 Acute kidney failure N17.9 Status post right partial knee replacement Z96.651 DVT prophylaxis Z29.9
--- NOTE | 2020-02-08 17:03 | Cardiology Consultation ---
Date of Consultation February 08, 2020 Assessment & Plan (1) Atrial flutter: The presenting rhythm does appear to be in atrial flutter. This is likely a typical right atrial flutter as he does not have known cardiac disease, history of cardiac surgery or abnormalities on his echocardiogram. The etiology of his atrial flutter is unclear. He appears to be an otherwise healthy individual. No evidence of recent pulmonary embolus or pulmonary pathology. No history suggestive of obstructive sleep apnea. While he is bothered by the palpitations, he does not have severe symptoms. It is curious that he cycles in and out of atrial flutter. He seems to have frequent atrial ectopy which likely triggers the atrial flutter. He does appear to be a good candidate for ablation of what is hopefully a typical right atrial flutter. However, this cannot be accomplished for few days. I think we can try a period of antiarrhythmic therapy in the hopes of reducing his symptoms of atrial flutter. With his structurally normal heart he appears to be a good candidate for flecainide. This will be used in conjunction with diltiazem. His chads Vasc score is 0. However, if we are planning catheter based therapy would seem reasonable to anticoagulate him before in afterwards to reduce his risk of thromboembolic events. 300 mg of flecainide now Start flecainide 100 mg b.i.d. tomorrow morning Start Xarelto 20 mg daily tonight Plan for catheter based therapy next week (to be arranged through our office) If the patient is feeling well, has little or no atrial flutter or atrial flutter with good rate control he could easily be discharged home with follow-up for his ablation next week. History of Present Illness Reason for Consultation: Atrial flutter Requesting Physician: Ernie Attending Physician: Nikko Klein MD History of Present Illness The patient is a 51-year-old gentleman without a known history of cardiac disease has been experiencing symptoms of palpitations for nearly 1 year. Patient states that the episodes feel like a fluttering. He may have an element of mild exercise intolerance if he tries to perform strenuous activity during episode. However, he does not report symptoms of dizziness, lightheadedness presyncope or syncope. The episodes themselves were initially quite brief and rare. However they become more frequent and sustained. He had an episode last weekend that lasted approximately 24 hours. He was told by his primary care physician to present to the emergency room for another episode which he did today. He was discovered to have an atrial flutter. The initial heart rate was fast but in ministry mina of adenosine revealed flutter waves. He was placed on diltiazem infusion and sent to the [facility]. At this time he claims to be feeling well. He is somewhat frustrated with arrhythmia. He still notices palpitations. He does not describe other symptoms currently. He is generally very active individual who play sports in tennis. His activity has been curtailed recently due to problems with his right knee. He underwent a partial right knee replacement approximately 2 weeks ago. Allergies Allergy/AdvReac Type Severity Reaction Status Date / Time No Known Allergies Allergy Verified 02/08/20 10:07 Home Medications Home Medications Medication Instructions Recorded Confirmed Type cholecalciferol (vitamin D3) 25 1,000 units PO QAM 02/19/19 02/08/20 History mcg (1,000 unit) capsule naproxen sodium 220 mg capsule 220 mg PO QAM PRN 02/19/19 02/08/20 History amoxicillin 500 mg tablet 2,000 mg PO ONCE PRN #4 tab 10/11/19 02/08/20 Rx aspirin 81 mg PO BID 42 Days #84 tab 01/25/20 02/08/20 Rx oxycodone 5 mg PO Q6H PRN #30 tab 01/25/20 02/08/20 Rx tadalafil 20 mg PO UD PRN 02/08/20 02/08/20 History Patient History Medical History Arthritis Atrial flutter Surgical History History of mandibular surgery under-bite repair History of prosthetic unicompartmental arthroplasty of left knee (~06/2019) 06/15/2019 [facility] Hx of colonoscopy Status post right partial knee replacement (~01/2020) Family History Sister PONV (postoperative nausea and vomiting) Social History Smoking Status: Never smoker Second Hand Exposure: No; Do You Dip or Chew Tobacco: No; Tobacco Cessation Education Requested by Patient: No Hx Alcohol Use: Yes Alcohol type: hard liquor Hx Substance Use: No Preferred Language: Bahamian Communication Ability: Effective Contour Grinder Required: No Beliefs That Will Affect Care: None marital status: Current Living Situation: Spouse Other Information That Helps Us Care for You: No Feels Safe at Home: Yes Assistive Devices: None Review of Systems Review of Systems: All systems reviewed & are unremarkable except as noted in HPI & below No recent constitutional symptoms such as fevers or chills. Minimal pain involving the operative site on the right knee. No change in the bowel or bladder habits. No swelling in lower extremities. Physical Exam Physical Exam: The patient is alert and oriented. Mood and affect appeared normal. He answered all questions appropriately. HEENT: Pupils are equal and reactive to light and accommodation. Extraocular movements are intact. The sclerae are anicteric. Neuro: Cranial nerves intact Neck: Patient's neck is supple. He has palpable carotid pulses bilaterally without bruits on auscultation. There is no evidence of jugular venous distention. The thyroid is not enlarged. Lungs: Clear to auscultation bilaterally. He has good air movement without use of accessory muscles. No rales wheezes or rhonchi. Cardiac: Heart demonstrates an irregular rhythm. Fast rate.. Normal S1 and S2. No murmurs on examination. Pulses: The patient has palpable radial pulses bilaterally that are equal in intensity Extremities: There was no evidence of hypoperfusion. There is no cyanosis or clubbing. There is no edema. Skin: I did not appreciate any rashes on examination today. Results & Data ([facility]) Vital Signs (Past 12 Hours) Vital Signs Temp Pulse Pulse Pulse Resp BP BP 02/08/20 15:09 36.5 C 67 18 101/77 02/08/20 11:58 36.6 C 100 H 16 128/83 02/08/20 11:42 90 20 113/80 02/08/20 11:30 92 H 20 113/80 02/08/20 11:15 96 H 19 119/77 02/08/20 11:00 117 H 22 111/90 02/08/20 10:21 96 H 22 135/77 02/08/20 09:31 145 H 20 113/89 02/08/20 09:10 02/08/20 08:58 36.5 C 103 H 20 111/75 Pulse Ox 02/08/20 15:09 94 02/08/20 11:58 99 02/08/20 11:42 99 02/08/20 11:30 94 02/08/20 11:15 96 02/08/20 11:00 97 02/08/20 10:21 96 02/08/20 09:31 98 02/08/20 09:10 100 02/08/20 08:58 97 Laboratory Results Abnormal Lab Results 02/08/20 02/08/20 02/08/20 09:05 09:05 09:05 WBC 6.31 RBC 5.01 Hgb 16.3 Hct 47.4 MCV 94.6 MCH 32.5 MCHC 34.4 RDW Std Deviation 44.8 RDW Coeff of Jim 13.0 Plt Count 286 MPV 9.5 Immature Gran % (Auto) 0.5 Neut % (Auto) 70.5 Lymph % (Auto) 19.3 [place] % (Auto) 6.8 Eos % (Auto) 2.7 Baso % (Auto) 0.2 Neut # (Auto) 4.45 Lymph # (Auto) 1.22 [place] # (Auto) 0.43 Eos # (Auto) 0.17 Baso # (Auto) 0.01 Immature Gran # (Auto) 0.03 H PT 10.6 INR 1.0 D-Dimer 2000 H* Sodium 137 Potassium 3.9 Chloride 103 Carbon Dioxide 24 Anion Gap 10.0 BUN 18 Creatinine 1.49 H Est Cr Clr Drug Dosing 62.2 Est GFR ( Amer) 59.1 Est GFR (Non-Af Amer) 51.0 BUN/Creatinine Ratio 12.3 Glucose 159 H Calcium 8.6 Magnesium 2.0 Total Bilirubin 0.6 AST 22 ALT 26 Alkaline Phosphatase 67 Troponin I < 0.015 NT-Pro-B Natriuret Pep 688 Total Protein 7.0 Albumin 3.7 Globulin 3.3 Albumin/Globulin Ratio 1.1 Lipase 85 TSH 1.910 Lyme Disease IgG Ab Lyme Disease IgM Ab COVID-19 Eval Order SARS-CoV-2, RNA, NAAT 02/08/20 02/08/20 02/08/20 09:05 13:00 13:00 WBC RBC Hgb Hct MCV MCH MCHC RDW Std Deviation RDW Coeff of Jim Plt Count MPV Immature Gran % (Auto) Neut % (Auto) Lymph % (Auto) [place] % (Auto) Eos % (Auto) Baso % (Auto) Neut # (Auto) Lymph # (Auto) [place] # (Auto) Eos # (Auto) Baso # (Auto) Immature Gran # (Auto) PT INR D-Dimer Sodium Potassium Chloride Carbon Dioxide Anion Gap BUN Creatinine Est Cr Clr Drug Dosing Est GFR ( Amer) Est GFR (Non-Af Amer) BUN/Creatinine Ratio Glucose Calcium Magnesium Total Bilirubin AST ALT Alkaline Phosphatase Troponin I NT-Pro-B Natriuret Pep Total Protein Albumin Globulin Albumin/Globulin Ratio Lipase TSH Lyme Disease IgG Ab Negative Lyme Disease IgM Ab Negative COVID-19 Eval [facility] SARS-CoV-2, RNA, NAAT NEGATIVE Diagnostic Findings Echocardiogram performed today revealed preserved LV systolic function. No significant valvular heart disease. Chest CTA did not reveal any evidence of pulmonary embolus. No other intrathoracic pathology. ECG Additional Comments: At the time of admission revealed atrial flutter with rapid ventricular response. PG Care Time/CCT Total # of Minutes Spent Total Time Spent with Patient: Total time spent is greater than 50% in coordination of care (as documented) at patient's floor/unit and/or counseling patient: Coding Level of Care Code 32936 Inpt Consult Level 4 Diagnoses Atrial flutter I48.92
--- NOTE | 2020-02-08 17:13 | XCELERA ---
[id number]
[2020-02-08] MEDS ORDERED: FLECAINIDE ACETATE 100 MG TABLET PO ONE (17:30)
--- NOTE | 2020-02-08 18:16 | Electrocardiogram Report ---
Test Reason : Blood Pressure : / mmHG Vent. Rate : 154 BPM Atrial Rate : 154 BPM P-R Int : 122 ms QRS Dur : 110 ms QT Int : 250 ms P-R-T Axes : 077 -08 052 degrees QTc Int : 400 ms atrial flutter Abnormal ECG Confirmed by Ravi Thomas ([id number]) on 02/08/2020 6:16:26 PM Referred By: Confirmed By:Rafa Thomas
--- NOTE | 2020-02-08 18:17 | Electrocardiogram Report ---
Test Reason : Blood Pressure : / mmHG Vent. Rate : 149 BPM Atrial Rate : 298 BPM P-R Int : 000 ms QRS Dur : 072 ms QT Int : 324 ms P-R-T Axes : 260 014 -08 degrees QTc Int : 510 ms Atrial flutter with 2:1 A-V conduction Abnormal ECG Confirmed by Ravi Thomas ([id number]) on 02/08/2020 6:16:47 PM Referred By: REFERRED SELF Confirmed By:Rafa Thomas
--- NOTE | 2020-02-08 18:19 | Electrocardiogram Report ---
Test Reason : Blood Pressure : / mmHG Vent. Rate : 099 BPM Atrial Rate : 340 BPM P-R Int : 000 ms QRS Dur : 076 ms QT Int : 352 ms P-R-T Axes : 000 003 034 degrees QTc Int : 451 ms Atrial flutter with variable ventricular response Abnormal ECG Confirmed by Ravi Thomas ([id number]) on 02/08/2020 6:19:33 PM Referred By: REFERRED SELF Confirmed By:Rafa Thomas
[2020-02-08] MEDS ORDERED: ASPIRIN 81 MG ECTAB PO SCH (21:00)
[2020-02-09 03:19] VITALS: O2SAT 94
[2020-02-09 06:06] LABS: Hematocrit (blood only) 40.1 % (42-52); Hemoglobin 13.6 g/dL (14.0-18.0); Mean Corpuscular Hemoglobin 32.6 pg (25-34); Mean Corpuscular Hgb Conc 33.9 g/dL (32-36); Mean Corpuscular Volume 96.2 fL (80-100); Platelet Count 261 K/uL (130-400); Red Blood Count 4.17 M/uL (4.7-6.1); White Blood Count 6.01 K/uL (4.8-10.8)
[2020-02-09 06:26] LABS: BUN Creatinine Ratio 13.9 (10-20); Calcium 8.1 mg/dl (8.5-10.1); Creatinine Clr Calc Pharmacy 69.8 ml/min; Est GFR (African American) 67.8; Est GFR (Non-African American) 58.5; Potassium 3.9 mmol/L (3.5-5.1)
[2020-02-09 07:39] VITALS: BP 130/71; TEMP 98.1
[2020-02-09] MEDS: dilTIAZem HCL 125 MG in DEXTROSE 5% 100 ML IV SCH (08:28)
[2020-02-09] MEDS ORDERED: FLECAINIDE ACETATE 100 MG TABLET PO SCH (09:00)
--- NOTE | 2020-02-09 10:51 | Discharge Summary ---
Date of Service February 09, 2020 Admission HPI Per Admitting Provider 59yo M in excellent health who presents for atrial flutter. Has noted episodes for at least a few months and possibly a year. The episodes present as a racing heart sensation in his chest. Sometimes his heart is fast or irregular, or even pauses for a second. The episodes used to last a few minutes each, but more recently have been lasting several hours and once even over the entire night. He has been working with his PCP to capture an episode, but wasn't able to with a 24-hour Holter monitor. This episode began last night around 9pm and lasted until he came to the ER. He reports the racing sensation without any chest pain, shortness of breath, nausea, vomiting, lightheadedness, or other sensations. Nothing really makes it better or worse. In the ED, he was found to have a HR of 150. Adenosine revealed flutter waves. Diltiazem brought the HR down to ~100. He is also skipping in and out of sinus bradycardia. Principal Diagnosis Rapid atrial flutter Acute kidney injury Discharge Exam Constitutional WD/WN, vitals as above Eyes + anicteric sclerae Neck trachea midline, no thyromegaly Respiratory normal respiratory effort, lungs clear to auscultation Cardiovascular Rate/Rhythm: regular rhythm and + bradycardic Heart Sounds: no murmur Extremities: no calf tenderness and no edema Chest (Breasts) Chest: normal inspection of chest Gastrointestinal (Abdomen) normal bowel sounds, soft, nontender, no hepatosplenomegaly Musculoskeletal Extremities: + extremities abnormal to inspection (right knee with thigh high SCD,small effusion), no cyanosis and no clubbing Skin no rashes, warm and dry Neurologic moves all extremities and awake; no focal motor deficits Psychiatric A+Ox3, euthymic affect Lymphatic no lymphedema Discharge Data Allergies Allergy/AdvReac Type Severity Reaction Status Date / Time No Known Allergies Allergy Verified 02/08/20 10:07 Consultations 02/08/20 11:09 ED Decision to Admit Stat 02/08/20 11:57 Consult Cardiology Routine Ordered Studies 02/08/20 10:03 CT angio chest PE protocol Stat ECHO Hospital Course (1) Atrial flutter: Atrial flutter seen on rhythm strip after pushing adenosine in the ED. On interview, he is converting, then jumping back into what appears to be the atrial flutter. HRs as low as 40s, then right up to 150s. TSH normal. No other inciting etiology noted. ECHO normal -was placed on diltiazem gtt, loaded with flecainide, and converted to NSR - Cardiology consult appreciated--> recommends starting Xarelto, flecainide 100mg po bid, and Toprol XL 12.5mg po daily -plan for catheter-ablation within the week as an outpatient as per Cardiology Stable for dc to home (2) Acute kidney failure: Cr up to 1.5 on admission; unclear baseline. Social Media Marketing Manager down to 1.3 on day of discharge after IVFs Follow BMP as outpt with PCP (3) Status post right partial knee replacement: S/p right partial TKA with Dr. Encarnacion on 01/25/2020. - Only taking Tylenol mostly at this point - Continue oxycodone PRN (only really taking it at night) -discontinue ASA 81 mg PO BID for DVT ppx per surgery as is now on Xarelto instead dc NSAIDs due to being on anticoagulation; this was d/w patient and his at bedside (4) DVT prophylaxis: Xarelto Dispo-stable for dc to home Total Time Total Time Spent Total Time Spent (In Minutes): 35 min Total Time Includes: Examination of the Patient, Discharge Planning, Medication Reconciliation and Communication With Other Providers (Dr. Painter) Discharge Plan Discharge Items Patient Disposition: Home - Self-Care Reason For Visit: Atrial flutter Discharge Diagnosis: Atrial flutter Condition on Discharge: Good Activity: Resume your previous activity Non-emergency contact: Primary Care Provider and Ware Cleaner Call non-emergency contact if: you have any medication questions and your symptoms worsen Follow-up/Referrals: Bam Thomas MD [Physician] - (Dr. Thomas's office should be reaching out to you to schedule the ablation. Please call his office if you have not heard from them.) Tobin Sawyer MD [Primary Care Provider] - (Follow up within 1 week.) Diet: Regular Addtl Attending Provider Instructions: You were admitted with a rapid heart rhythm called atrial flutter. This was treated with medications to keep your heart in a regular rhythm and control the heart rate. You were also started on a blood thinner called Xarelto to prevent you from having a stroke as atrial flutter puts you at increased risk for stroke. You will be scheduled to get a cardiac ablation to treat your atrial flutter. You should STOP taking the aspirin from your knee surgery and avoid all NSAID medications (Advil, naproxen,Aleve, ibuprofen, Motrin, etc.) as these are also blood thinners. Medication Instructions: Your condition is typically treated with an anticoagulant. Anticoagulants will thin your blood to help prevent new clots. * You should take her medication exactly as directed. * Never skip a dose. * Never take a double dose. If you miss a dose, take it as soon as you remember. Call your Primary Care doctor if you experience any of the following: * Chest Pain * Sudden Shortness of Breath * Rapid or pounding heart beat * Fainting * Dizziness * Cough with blood or bloody sputum * Sweating more than normal * Bruises * Heavy or uncontrolled bleeding * Blood in your urine, stool or vomit * Black or tarry stools Caring for Your Self at Home: * Avoid sitting, standing or lying down for long periods without moving your legs and feet * When traveling by car, stop to get out and move around at least once every 3 hours * On long airplane, train or bus rides, get up and move around when possible * If you can't get up, wiggle your toes and tighten your calves to keep your blood moving Follow Up: It is important for you to keep your follow up appointments with your medical provider. Pending Studies at Discharge: No Stand-Alone Forms: My [facility] Medications and DC Order Prescriptions: New flecainide 100 mg Tablet 100 mg PO Q12 Qty: 60 RF: 0 metoprolol succinate 25 mg Tablet Extended Release 24 Hr 12.5 mg PO QAM Qty: 15 RF: 0 Xarelto 20 mg Tablet 20 mg PO QDD Qty: 30 RF: 0 Continued amoxicillin 500 mg tablet 2,000 mg PO ONCE PRN (Reason: prophylaxis) Qty: 4 RF: 2 cholecalciferol (vitamin D3) 1,000 unit capsule 1,000 units PO QAM RF: 0 oxycodone 5 mg tablet 5 mg PO Q6H PRN (Reason: pain) Qty: 30 RF: 0 tadalafil 20 mg tablet 20 mg PO UD PRN (Reason: Erectile Dysfunction) RF: 0 Discontinued naproxen sodium [Aleve] 220 mg capsule 220 mg PO QAM PRN (Reason: Pain) RF: 0 aspirin 81 mg Tablet,Delayed Release (Dr/Ec) 81 mg PO BID 42 Days Qty: 84 RF: 0 Discharge Orders: Discharge Order (Routine); Ordered 02/09/20 Ordered By: Aiyana Godoy Admission Data Admit Date/Time: 02/08/20 11:17 Attending Provider: Aiyana Godoy Admit Provider: Nikko Klein Primary Care Provider: Tobin Sawyer Other Providers: Nikko Klein ; Bam Thomas Coding Level of Care Code D/C Day Management >30 mins Diagnoses Atrial flutter I48.92 Acute kidney failure N17.9 Status post right partial knee replacement Z96.651 DVT prophylaxis Z29.9
[2020-02-09] MEDS ORDERED: METOPROLOL SUCC 25MG EXT REL TAB PO SCH (11:00)
[2020-02-09 11:35] VITALS: PULSE 61
[2020-02-09] MEDS ORDERED: RIVAROXABAN 20 MG TAB PO SCH (16:30)
[2020-02-10] MEDS ORDERED: METOPROLOL SUCC 25MG EXT REL TAB PO SCH (09:00)
== END 2020-02-09 13:32 | disposition home or self-care (01) | DRG 309 ==
LOC: ED 08:48 → 2E 11:17 → SUATTDRO 11:17 → 2E 11:42